=== PATIENT | male | born 1945 | race American Indian/Alaskan Native ===

== ENCOUNTER 2018-12-07 16:02 | Inpatient (IN) | payer MEDICARE ==
[2018-12-07] MEDS ORDERED: NACL 0.9% 1000 ML 1,000 ML IV ONE ×2 (16:25→19:26)
[2018-12-07] MEDS ORDERED: ATIVAN IV ONE ×4 (16:42→18:43)
[2018-12-07] MEDS ORDERED: ATIVAN ONE (16:46)
[2018-12-07 17:14] LABS: Hematocrit 45.6 % (35.5-45.6); Hemoglobin 14.5 gm/dl (11.8-15.2); Mean Corpuscular HGB Conc 32 % (32-34); Mean Corpuscular Volume 72 fl (84-94); Red Blood Count 6.37 M/mm3 (3.65-5.03)
[2018-12-07 17:16] LABS: Platelet Count 199 K/mm3 (140-440)
[2018-12-07 17:24] LABS: INR 1.02 (0.87-1.13)
[2018-12-07 17:25] LABS: Partial Thromboplastin Time 26.6 Sec. (24.2-36.6)
[2018-12-07 17:42] LABS: Alanine Aminotransferase 22 units/L (7-56); BUN/Creatinine Ratio 14; Blood Urea Nitrogen 11 mg/dL (9-20); Hemolysis Index 80
[2018-12-07 17:48] LABS: Basophils % (Manual) 0 % (0.0-1.8); Eosinophils % (Manual) 0 % (0.0-4.3); Hypochromasia 1+; Total Cells Counted 100
[2018-12-07] MEDS ORDERED: HALDOL IV PRN (17:53)
[2018-12-07] MEDS ORDERED: HALDOL IM ONE (18:02)
[2018-12-07 18:03] LABS: Bilirubin,Urine NEG (Negative); Blood,Urine SM (Negative); Color,Urine Yellow (Yellow); Hyaline Casts,Urine 1 /LPF; Mucus,Urine FEW /HPF; Urobilinogen,Urine < 2.0 mg/dL (<2.0)
[2018-12-07] MEDS ORDERED: BENADRYL IV ONE (18:03)
[2018-12-07 18:25] LABS: Cocaine Screen,Urine PRESUMPTIVE POSITIVE
--- NOTE | 2018-12-07 19:11 | Emergency Department Report ---
ED Altered Mental Status HPI - General Chief Complaint: Altered Mental Status Stated Complaint: AMS Time Seen by Provider: 12/07/18 16:25 Source: patient Mode of arrival: Ambulatory Limitations: No Limitations - History of Present Illness Initial Comments: Patient was found in his yard by a neighbor, 911 was called, neighbor didn't have any personal information, patient was brought to the ED without tenderness status, unable to talk, agitated, with tremors, appeared to be in DTs. MD Complaint: altered mental status, confusion - Related Data Home Medications Medication Instructions Recorded Confirmed Last Taken Unobtainable 12/07/18 12/07/18 Unknown Allergies Allergy/AdvReac Type Severity Reaction Status Date / Time No Known Allergies Allergy Verified 12/07/18 17:22 ED Review of Systems ROS: Stated complaint: AMS Other details as noted in HPI Comment: Unobtainable due to pts medical conditions ED Past Medical Hx - Past Medical History Previous Medical History?: No - Surgical History Past Surgical History?: No - Social History Smoking Status: Unknown if ever smoked Substance Use Type: None - Medications Home Medications: Home Medications Medication Instructions Recorded Confirmed Last Taken Type Unobtainable 12/07/18 12/07/18 Unknown History ED Physical Exam - General Limitations: Altered Mental Status General appearance: lethargic - Head Head exam: Present: atraumatic, normocephalic - ENT ENT exam: Present: normal exam - Neck Neck exam: Present: normal inspection - Respiratory Respiratory exam: Present: normal lung sounds bilaterally - Cardiovascular Cardiovascular Exam: Present: regular rate - GI/Abdominal GI/Abdominal exam: Present: soft - Neurological Exam Neurological exam: Present: altered ED Course Vital Signs 12/07/18 12/07/18 12/07/18 16:12 16:15 16:28 Temperature 97.9 F Pulse Rate 98 H 99 H Respiratory 15 16 Rate Blood Pressure 170/94 Blood Pressure [Left] O2 Sat by Pulse 95 80 L 96 Oximetry 12/07/18 12/07/18 12/07/18 16:31 16:45 17:02 Temperature Pulse Rate 91 H Respiratory 15 Rate Blood Pressure 179/108 149/123 152/97 Blood Pressure [Left] O2 Sat by Pulse 97 91 Oximetry 12/07/18 12/07/18 12/07/18 17:17 17:31 17:40 Temperature Pulse Rate 104 H 105 H Respiratory 17 16 Rate Blood Pressure 184/118 184/118 Blood Pressure [Left] O2 Sat by Pulse 95 95 Oximetry 12/07/18 12/07/18 12/07/18 17:45 18:01 18:15 Temperature Pulse Rate 107 H 106 H 104 H Respiratory 16 15 14 Rate Blood Pressure 184/118 143/116 143/116 Blood Pressure [Left] O2 Sat by Pulse Oximetry 12/07/18 12/07/18 12/07/18 18:30 18:41 18:45 Temperature Pulse Rate 108 H 75 Respiratory 16 16 Rate Blood Pressure 170/110 172/104 Blood Pressure 170/110 [Left] O2 Sat by Pulse 84 96 Oximetry 12/07/18 12/07/18 12/07/18 19:01 19:15 19:31 Temperature Pulse Rate 113 H 113 H 112 H Respiratory 15 13 21 Rate Blood Pressure 172/104 172/104 172/104 Blood Pressure [Left] O2 Sat by Pulse 82 L 97 98 Oximetry 12/07/18 12/07/18 12/07/18 19:45 20:01 20:15 Temperature Pulse Rate 114 H 125 H 128 H Respiratory 16 19 17 Rate Blood Pressure 172/104 172/104 172/104 Blood Pressure [Left] O2 Sat by Pulse 98 97 97 Oximetry 12/07/18 12/07/18 12/07/18 20:31 20:45 21:01 Temperature Pulse Rate 114 H 108 H 108 H Respiratory 16 20 22 Rate Blood Pressure 172/104 172/104 172/104 Blood Pressure [Left] O2 Sat by Pulse 98 Oximetry 12/07/18 12/07/18 12/07/18 21:15 21:31 21:45 Temperature Pulse Rate 132 H 122 H 128 H Respiratory 15 14 15 Rate Blood Pressure 172/104 172/104 172/104 Blood Pressure [Left] O2 Sat by Pulse 97 99 97 Oximetry 12/07/18 12/07/18 12/07/18 22:01 22:15 22:31 Temperature Pulse Rate 107 H 130 H 114 H Respiratory 22 16 12 Rate Blood Pressure 172/104 172/104 167/108 Blood Pressure [Left] O2 Sat by Pulse 97 99 99 Oximetry 12/07/18 12/07/18 12/07/18 22:45 22:49 23:00 Temperature Pulse Rate 114 H 115 H 113 H Respiratory 29 H 22 29 H Rate Blood Pressure 167/108 94/64 Blood Pressure 100/66 [Left] O2 Sat by Pulse 99 99 Oximetry - Lab Data Result diagrams: 12/08/18 05:03 12/08/18 05:03 Lab Results 12/07/18 12/07/18 12/07/18 Range/Units 16:17 16:49 16:49 WBC 9.9 (4.5-11.0) K/mm3 RBC 6.37 H (3.65-5.03) M/mm3 Hgb 14.5 (11.8-15.2) gm/dl Hct 45.6 (35.5-45.6) % MCV 72 L (84-94) fl MCH 23 L (28-32) pg MCHC 32 (32-34) % RDW 16.0 H (13.2-15.2) % Plt Count 199 (140-440) K/mm3 Add Manual Diff Complete Total Counted 100 Seg Neutrophils % [employer] Seg Neuts % (Manual) 91.0 H (40.0-70.0) % Band Neutrophils % 0 % Lymphocytes % (Manual) 5.0 L (13.4-35.0) % Reactive Lymphs % (Man) 0 % Monocytes % (Manual) 4.0 (0.0-7.3) % Eosinophils % (Manual) 0 (0.0-4.3) % Basophils % (Manual) 0 (0.0-1.8) % Metamyelocytes % 0 % Myelocytes % 0 % Promyelocytes % 0 % Blast Cells % 0 % Nucleated RBC % Not Reportable Seg Neutrophils # Man 9.0 H (1.8-7.7) K/mm3 Band Neutrophils # 0.0 K/mm3 Lymphocytes # (Manual) 0.5 L (1.2-5.4) K/mm3 Abs React Lymphs (Man) 0.0 K/mm3 Monocytes # (Manual) 0.4 (0.0-0.8) K/mm3 Eosinophils # (Manual) 0.0 (0.0-0.4) K/mm3 Basophils # (Manual) 0.0 (0.0-0.1) K/mm3 Metamyelocytes # 0.0 K/mm3 Myelocytes # 0.0 K/mm3 Promyelocytes # 0.0 K/mm3 Blast Cells # 0.0 K/mm3 WBC Morphology Not Reportable Hypersegmented Neuts Not Reportable Hyposegmented Neuts Not Reportable Hypogranular Neuts Not Reportable Smudge Cells Not Reportable Toxic Granulation Not Reportable Toxic Vacuolation Not Reportable Dohle Bodies Not Reportable Pelger-Huet Anomaly Not Reportable Gregory Rods Not Reportable Platelet Estimate Not Reportable Clumped Platelets Not Reportable Plt Clumps, EDTA Not Reportable Large Platelets Not Reportable Giant Platelets Not Reportable Platelet Satelliting Not Reportable Plt Morphology Comment Not Reportable RBC Morphology Not Reportable Dimorphic RBCs Not Reportable Polychromasia Not Reportable Hypochromasia 1+ Poikilocytosis Not Reportable Anisocytosis Not Reportable Microcytosis Not Reportable Macrocytosis Not Reportable Spherocytes Not Reportable Pappenheimer Bodies Not Reportable Sickle Cells Not Reportable Target Cells Not Reportable Tear Drop Cells Not Reportable Ovalocytes Not Reportable Helmet Cells Not Reportable [place] Bodies Not Reportable [place] Rings Not Reportable Sandrine Cells Not Reportable Bite Cells Not Reportable Crenated Cell Not Reportable Elliptocytes Not Reportable Acanthocytes (Spur) Not Reportable Rouleaux Not Reportable Hemoglobin C Crystals Not Reportable Schistocytes Not Reportable Malaria parasites Not Reportable Harvinder Bodies Not Reportable Hem Pathologist Commnt No PT 13.1 (12.2-14.9) Sec. INR 1.02 (0.87-1.13) APTT 26.6 (24.2-36.6) Sec. Sodium (137-145) mmol/L Potassium (3.6-5.0) mmol/L Chloride (98-107) mmol/L Carbon Dioxide (22-30) mmol/L Anion Gap mmol/L BUN (9-20) mg/dL Creatinine (0.8-1.5) mg/dL Estimated GFR ml/min BUN/Creatinine Ratio % Glucose (75-100) mg/dL POC Glucose 298 H (70-105) Lactic Acid (0.7-2.0) mmol/L Calcium (8.4-10.2) mg/dL Total Bilirubin (0.1-1.2) mg/dL AST (5-40) units/L ALT (7-56) units/L Alkaline Phosphatase (35-129) units/L Ammonia (25-60) umol/L Troponin T (0.00-0.029) ng/mL Total Protein (6.3-8.2) g/dL Albumin (3.9-5) g/dL Albumin/Globulin Ratio % Amylase (27-131) units/L Urine Color (Yellow) Urine Turbidity (Clear) Urine pH (5.0-7.0) Ur Specific Melvin (1.003-1.030) Urine Protein (Negative) mg/dL Urine Glucose (UA) (Negative) mg/dL Urine Ketones (Negative) mg/dL Urine Blood (Negative) Urine Nitrite (Negative) Urine Bilirubin (Negative) Urine Urobilinogen (<2.0) mg/dL Ur Leukocyte Esterase (Negative) Urine WBC (Auto) (0.0-6.0) /HPF Urine RBC (Auto) (0.0-6.0) /HPF Hyaline Casts /LPF Urine Mucus /HPF Urine Opiates Screen Urine Methadone Screen Ur Barbiturates Screen Ur Phencyclidine Scrn Ur Amphetamines Screen U Benzodiazepines Scrn Urine Cocaine Screen U Marijuana (THC) Screen Drugs of Abuse Note Plasma/Serum Alcohol (0-0.07) % 12/07/18 12/07/18 12/07/18 Range/Units 16:49 16:49 16:49 WBC (4.5-11.0) K/mm3 RBC (3.65-5.03) M/mm3 Hgb (11.8-15.2) gm/dl Hct (35.5-45.6) % MCV (84-94) fl MCH (28-32) pg MCHC (32-34) % RDW (13.2-15.2) % Plt Count (140-440) K/mm3 Add Manual Diff Total Counted Seg Neutrophils % Seg Neuts % (Manual) (40.0-70.0) % Band Neutrophils % % Lymphocytes % (Manual) (13.4-35.0) % Reactive Lymphs % (Man) % Monocytes % (Manual) (0.0-7.3) % Eosinophils % (Manual) (0.0-4.3) % Basophils % (Manual) (0.0-1.8) % Metamyelocytes % % Myelocytes % % Promyelocytes % % Blast Cells % % Nucleated RBC % Seg Neutrophils # Man (1.8-7.7) K/mm3 Band Neutrophils # K/mm3 Lymphocytes # (Manual) (1.2-5.4) K/mm3 Abs React Lymphs (Man) K/mm3 Monocytes # (Manual) (0.0-0.8) K/mm3 Eosinophils # (Manual) (0.0-0.4) K/mm3 Basophils # (Manual) (0.0-0.1) K/mm3 Metamyelocytes # K/mm3 Myelocytes # K/mm3 Promyelocytes # K/mm3 Blast Cells # K/mm3 WBC Morphology Hypersegmented Neuts Hyposegmented Neuts Hypogranular Neuts Smudge Cells Toxic Granulation Toxic Vacuolation Dohle Bodies Pelger-Huet Anomaly Gregory Rods Platelet Estimate Clumped Platelets Plt Clumps, EDTA Large Platelets Giant Platelets Platelet Satelliting Plt Morphology Comment RBC Morphology Dimorphic RBCs Polychromasia Hypochromasia Poikilocytosis Anisocytosis Microcytosis Macrocytosis Spherocytes Pappenheimer Bodies Sickle Cells Target Cells Tear Drop Cells Ovalocytes Helmet Cells [place] Bodies [place] Rings Sandrine Cells Bite Cells Crenated Cell Elliptocytes Acanthocytes (Spur) Rouleaux Hemoglobin C Crystals Schistocytes Malaria parasites Harvinder Bodies Hem Pathologist Commnt PT (12.2-14.9) Sec. INR (0.87-1.13) APTT (24.2-36.6) Sec. Sodium 129 L (137-145) mmol/L Potassium 4.6 (3.6-5.0) mmol/L Chloride 89.6 L (98-107) mmol/L Carbon Dioxide 22 (22-30) mmol/L Anion Gap 22 mmol/L BUN 11 (9-20) mg/dL Creatinine 0.8 (0.8-1.5) mg/dL Estimated GFR > 60 ml/min BUN/Creatinine Ratio 14 % Glucose 325 H (75-100) mg/dL POC Glucose (70-105) Lactic Acid 3.10 H* (0.7-2.0) mmol/L Calcium 10.0 (8.4-10.2) mg/dL Total Bilirubin 1.00 (0.1-1.2) mg/dL AST 25 (5-40) units/L ALT 22 (7-56) units/L Alkaline Phosphatase 67 (35-129) units/L Ammonia (25-60) umol/L Troponin T < 0.010 (0.00-0.029) ng/mL Total Protein 7.4 (6.3-8.2) g/dL Albumin 4.0 (3.9-5) g/dL Albumin/Globulin Ratio 1.2 % Amylase (27-131) units/L Urine Color (Yellow) Urine Turbidity (Clear) Urine pH (5.0-7.0) Ur Specific [place]vin (1.003-1.030) Urine Protein (Negative) mg/dL Urine Glucose (UA) (Negative) mg/dL Urine Ketones (Negative) mg/dL Urine Blood (Negative) Urine Nitrite (Negative) Urine Bilirubin (Negative) Urine Urobilinogen (<2.0) mg/dL Ur Leukocyte Esterase (Negative) Urine WBC (Auto) (0.0-6.0) /HPF Urine RBC (Auto) (0.0-6.0) /HPF Hyaline Casts /LPF Urine Mucus /HPF Urine Opiates Screen Urine Methadone Screen Ur Barbiturates Screen Ur Phencyclidine Scrn Ur Amphetamines Screen U Benzodiazepines Scrn Urine Cocaine Screen U Marijuana (THC) Screen Drugs of Abuse Note Plasma/Serum Alcohol < 0.01 (0-0.07) % 12/07/18 12/07/18 12/07/18 Range/Units 17:36 17:36 18:01 WBC (4.5-11.0) K/mm3 RBC (3.65-5.03) M/mm3 Hgb (11.8-15.2) gm/dl Hct (35.5-45.6) % MCV (84-94) fl MCH (28-32) pg MCHC (32-34) % RDW (13.2-15.2) % Plt Count (140-440) K/mm3 Add Manual Diff Total Counted Seg Neutrophils % Seg Neuts % (Manual) (40.0-70.0) % Band Neutrophils % % Lymphocytes % (Manual) (13.4-35.0) % Reactive Lymphs % (Man) % Monocytes % (Manual) (0.0-7.3) % Eosinophils % (Manual) (0.0-4.3) % Basophils % (Manual) (0.0-1.8) % Metamyelocytes % % Myelocytes % % Promyelocytes % % Blast Cells % % Nucleated RBC % Seg Neutrophils # Man (1.8-7.7) K/mm3 Band Neutrophils # K/mm3 Lymphocytes # (Manual) (1.2-5.4) K/mm3 Abs React Lymphs (Man) K/mm3 Monocytes # (Manual) (0.0-0.8) K/mm3 Eosinophils # (Manual) (0.0-0.4) K/mm3 Basophils # (Manual) (0.0-0.1) K/mm3 Metamyelocytes # K/mm3 Myelocytes # K/mm3 Promyelocytes # K/mm3 Blast Cells # K/mm3 WBC Morphology Hypersegmented Neuts Hyposegmented Neuts Hypogranular Neuts Smudge Cells Toxic Granulation Toxic Vacuolation Dohle Bodies Pelger-Huet Anomaly Gregory Rods Platelet Estimate Clumped Platelets Plt Clumps, EDTA Large Platelets Giant Platelets Platelet Satelliting Plt Morphology Comment RBC Morphology Dimorphic RBCs Polychromasia Hypochromasia Poikilocytosis Anisocytosis Microcytosis Macrocytosis Spherocytes Pappenheimer Bodies Sickle Cells Target Cells Tear Drop Cells Ovalocytes Helmet Cells [place] Bodies [place] Rings [place] Cells Bite Cells Crenated Cell Elliptocytes Acanthocytes (Spur) Rouleaux Hemoglobin C Crystals Schistocytes Malaria parasites Harvinder Bodies Hem Pathologist Commnt PT (12.2-14.9) Sec. INR (0.87-1.13) APTT (24.2-36.6) Sec. Sodium (137-145) mmol/L Potassium (3.6-5.0) mmol/L Chloride (98-107) mmol/L Carbon Dioxide (22-30) mmol/L Anion Gap mmol/L BUN (9-20) mg/dL Creatinine (0.8-1.5) mg/dL Estimated GFR ml/min BUN/Creatinine Ratio % Glucose (75-100) mg/dL POC Glucose (70-105) Lactic Acid 4.20 H* (0.7-2.0) mmol/L Calcium (8.4-10.2) mg/dL Total Bilirubin (0.1-1.2) mg/dL AST (5-40) units/L ALT (7-56) units/L Alkaline Phosphatase (35-129) units/L Ammonia (25-60) umol/L Troponin T (0.00-0.029) ng/mL Total Protein (6.3-8.2) g/dL Albumin (3.9-5) g/dL Albumin/Globulin Ratio % Amylase (27-131) units/L Urine Color Yellow (Yellow) Urine Turbidity Clear (Clear) Urine pH 7.0 (5.0-7.0) Ur Specific Melvin 1.018 (1.003-1.030) Urine Protein 30 mg/dl (Negative) mg/dL Urine Glucose (UA) >=500 (Negative) mg/dL Urine Ketones 20 (Negative) mg/dL Urine Blood Sm (Negative) Urine Nitrite Neg (Negative) Urine Bilirubin Neg (Negative) Urine Urobilinogen < 2.0 (<2.0) mg/dL Ur Leukocyte Esterase Neg (Negative) Urine WBC (Auto) 2.0 (0.0-6.0) /HPF Urine RBC (Auto) 4.0 (0.0-6.0) /HPF Hyaline Casts 1 /LPF Urine Mucus Few /HPF Urine Opiates Screen Presumptive negative Urine Methadone Screen Presumptive negative Ur Barbiturates Screen Presumptive negative Ur Phencyclidine Scrn Presumptive negative Ur Amphetamines Screen Presumptive negative U Benzodiazepines Scrn Presumptive negative Urine Cocaine Screen Presumptive positive U Marijuana (THC) Screen Presumptive negative Drugs of Abuse Note Disclamer Plasma/Serum Alcohol (0-0.07) % 12/07/18 12/07/18 Range/Units 18:01 18:01 WBC (4.5-11.0) K/mm3 RBC (3.65-5.03) M/mm3 Hgb (11.8-15.2) gm/dl Hct (35.5-45.6) % MCV (84-94) fl MCH (28-32) pg MCHC (32-34) % RDW (13.2-15.2) % Plt Count (140-440) K/mm3 Add Manual Diff Total Counted Seg Neutrophils % Seg Neuts % (Manual) (40.0-70.0) % Band Neutrophils % % Lymphocytes % (Manual) (13.4-35.0) % Reactive Lymphs % (Man) % Monocytes % (Manual) (0.0-7.3) % Eosinophils % (Manual) (0.0-4.3) % Basophils % (Manual) (0.0-1.8) % Metamyelocytes % % Myelocytes % % Promyelocytes % % Blast Cells % % Nucleated RBC % Seg Neutrophils # Man (1.8-7.7) K/mm3 Band Neutrophils # K/mm3 Lymphocytes # (Manual) (1.2-5.4) K/mm3 Abs React Lymphs (Man) K/mm3 Monocytes # (Manual) (0.0-0.8) K/mm3 Eosinophils # (Manual) (0.0-0.4) K/mm3 Basophils # (Manual) (0.0-0.1) K/mm3 Metamyelocytes # K/mm3 Myelocytes # K/mm3 Promyelocytes # K/mm3 Blast Cells # K/mm3 WBC Morphology Hypersegmented Neuts Hyposegmented Neuts Hypogranular Neuts Smudge Cells Toxic Granulation Toxic Vacuolation Dohle Bodies Pelger-Huet Anomaly Gregory Rods Platelet Estimate Clumped Platelets Plt Clumps, EDTA Large Platelets Giant Platelets Platelet Satelliting Plt Morphology Comment RBC Morphology Dimorphic RBCs Polychromasia Hypochromasia Poikilocytosis Anisocytosis Microcytosis Macrocytosis Spherocytes Pappenheimer Bodies Sickle Cells Target Cells Tear Drop Cells Ovalocytes Helmet Cells [place] Bodies [place] Rings Sandrine Cells Bite Cells Crenated Cell Elliptocytes Acanthocytes (Spur) Rouleaux Hemoglobin C Crystals Schistocytes Malaria parasites Harvinder Bodies Hem Pathologist Commnt PT (12.2-14.9) Sec. INR (0.87-1.13) APTT (24.2-36.6) Sec. Sodium (137-145) mmol/L Potassium (3.6-5.0) mmol/L Chloride (98-107) mmol/L Carbon Dioxide (22-30) mmol/L Anion Gap mmol/L BUN (9-20) mg/dL Creatinine (0.8-1.5) mg/dL Estimated GFR ml/min BUN/Creatinine Ratio % Glucose (75-100) mg/dL POC Glucose (70-105) Lactic Acid (0.7-2.0) mmol/L Calcium (8.4-10.2) mg/dL Total Bilirubin (0.1-1.2) mg/dL AST (5-40) units/L ALT (7-56) units/L Alkaline Phosphatase (35-129) units/L Ammonia 84.0 H (25-60) umol/L Troponin T (0.00-0.029) ng/mL Total Protein (6.3-8.2) g/dL Albumin (3.9-5) g/dL Albumin/Globulin Ratio % Amylase 52 (27-131) units/L Urine Color (Yellow) Urine Turbidity (Clear) Urine pH (5.0-7.0) Ur Specific Melvin (1.003-1.030) Urine Protein (Negative) mg/dL Urine Glucose (UA) (Negative) mg/dL Urine Ketones (Negative) mg/dL Urine Blood (Negative) Urine Nitrite (Negative) Urine Bilirubin (Negative) Urine Urobilinogen (<2.0) mg/dL Ur Leukocyte Esterase (Negative) Urine WBC (Auto) (0.0-6.0) /HPF Urine RBC (Auto) (0.0-6.0) /HPF Hyaline Casts /LPF Urine Mucus /HPF Urine Opiates Screen Urine Methadone Screen Ur Barbiturates Screen Ur Phencyclidine Scrn Ur Amphetamines Screen U Benzodiazepines Scrn Urine Cocaine Screen U Marijuana (THC) Screen Drugs of Abuse Note Plasma/Serum Alcohol (0-0.07) % - Medical Decision Making Patient agitated in the ER received several aliquots of Ativan 1 mg IV for total 5 mg, Haldol 5 mg IM, Benadryl 50 mg IV, within the span of 3 hours. Patient still protecting airway, with admitted to the hospitalist service. Working diagnosis DTs. Critical care attestation.: If time is entered above; I have spent that time in minutes in the direct care of this critically ill patient, excluding procedure time. ED Disposition Clinical Impression: DTs (delirium tremens) Altered mental status Qualifiers: Altered mental status type: delirium Qualified Code(s): R41.0 - Disorientation, unspecified Disposition: OP ADMIT IP TO THIS HOSP Is pt being admited?: Yes Does the pt Need Aspirin: No Condition: Stable
[2018-12-07 19:22] LABS: Amphetamine Screen,Urine PRESUMPTIVE NEGATIVE; Benzodiazepines Screen,Urine PRESUMPTIVE NEGATIVE; Cannabinoid Screen,Urine PRESUMPTIVE NEGATIVE; Methadone Screen,Urine PRESUMPTIVE NEGATIVE; Opiate Screen,Urine PRESUMPTIVE NEGATIVE
--- NOTE | 2018-12-07 19:23 | History and Physical Report ---
History of Present Illness Chief complaint: Unresponsive History of present illness: Male gentleman found down and unresponsive in his yard by a neighbor. Pt is stuporous and unable to provide history. EMS notified and upon arrival the patient was found to be unresponsive and transported to [facility]. Pt seen and evaluated in ED and found to have Encephalopathy, Hyponatremia,Acidosis. Pt found to cocaine on UDS. Pt suspected to be intoxicated and undergoing ETOH withdwawl in ED. Pt admitted to [facility] and initiated on CIWA protocol. Pt is stuporous on exam, but has positive gag reflex and in able to protect his airway. No further history obtainable. No prior admission for review. No medication listed for reconciliation at time of exam. Pt does not have any form of identification. Past History Past Medical History: No medical history, other (Reviewed, UTO) Past Surgical History: No surgical history (reviewed, UTO) Social history: no significant social history (Reviewed, UTO) Family history: no significant family history (reviewed, UTO) Medications and Allergies Allergies Allergy/AdvReac Type Severity Reaction Status Date / Time No Known Allergies Allergy Verified 12/07/18 17:22 Home Medications Medication Instructions Recorded Confirmed Last Taken Type Unobtainable 12/07/18 12/07/18 Unknown History Review of Systems ROS unobtainable: due to mental status Exam - Constitutional Vitals: Temp Pulse Resp BP Pulse Ox 97.9 F 113 H 13 172/104 97 12/07/18 16:28 12/07/18 19:15 12/07/18 19:15 12/07/18 19:15 12/07/18 19:15 General appearance: Present: mild distress - EENT Eyes: Present: miosis - Neck Neck: Present: supple, normal ROM - Respiratory Respiratory effort: normal Respiratory: bilateral: CTA - Extremities Extremities: pulses symmetrical, No edema Peripheral Pulses: within normal limits - Abdominal General gastrointestinal: Present: soft, non-tender, non-distended, normal bowel sounds Male genitourinary: Present: normal - Integumentary Integumentary: Present: dry, clammy, decreased turgor - Musculoskeletal Musculoskeletal: generalized weakness - Psychiatric Psychiatric: no appropriate mood/affect, no intact judgment & insight, no memory intact - Neurologic Neurologic: moves all extremities, no gait normal Results - Labs CBC & Chem 7: 12/07/18 16:49 12/07/18 16:49 Labs: Abnormal lab results 12/07/18 12/07/18 12/07/18 Range/Units 16:17 16:49 16:49 RBC 6.37 H (3.65-5.03) M/mm3 MCV 72 L (84-94) fl MCH 23 L (28-32) pg RDW 16.0 H (13.2-15.2) % Seg Neuts % (Manual) 91.0 H (40.0-70.0) % Lymphocytes % (Manual) 5.0 L (13.4-35.0) % Seg Neutrophils # Man 9.0 H (1.8-7.7) K/mm3 Lymphocytes # (Manual) 0.5 L (1.2-5.4) K/mm3 Sodium 129 L (137-145) mmol/L Chloride 89.6 L (98-107) mmol/L Glucose 325 H (75-100) mg/dL POC Glucose 298 H (70-105) Lactic Acid (0.7-2.0) mmol/L Ammonia (25-60) umol/L 12/07/18 12/07/18 12/07/18 Range/Units 16:49 18:01 18:01 RBC (3.65-5.03) M/mm3 MCV (84-94) fl MCH (28-32) pg RDW (13.2-15.2) % Seg Neuts % (Manual) (40.0-70.0) % Lymphocytes % (Manual) (13.4-35.0) % Seg Neutrophils # Man (1.8-7.7) K/mm3 Lymphocytes # (Manual) (1.2-5.4) K/mm3 Sodium (137-145) mmol/L Chloride (98-107) mmol/L Glucose (75-100) mg/dL POC Glucose (70-105) Lactic Acid 3.10 H* 4.20 H* (0.7-2.0) mmol/L Ammonia 84.0 H (25-60) umol/L Assessment and Plan - Patient Problems (1) Encephalopathy Current Visit: Yes Status: Acute Plan to address problem: CT Head, Neuro check, UDS, aspiration precautions, seizure precautions, IVF resuscitation therapy. thyroid panel, EEG, neuro checks. (2) Acidosis Current Visit: Yes Status: Acute Plan to address problem: IVF resuscitation therapy, repeat bmp in am. (3) Diabetes Current Visit: Yes Status: Acute Plan to address problem: ADA diet, insulin, accu check, hypoglycemia protocol (4) Hyponatremia syndrome Current Visit: Yes Status: Acute Plan to address problem: IVF resuscitation therapy, repeat bmp (5) Polysubstance (excluding opioids) dependence Current Visit: Yes Status: Acute Plan to address problem: banana bag, CIWA protocol, Blood alcohol level, UDS, supportive care (6) DTs (delirium tremens) Current Visit: Yes Status: Acute Plan to address problem: Banana bag, IVF resuscitation therapy, neuro checks, aspiration precautions, fall precautions. (7) DVT prophylaxis Current Visit: Yes Status: Acute
[2018-12-07] MEDS ORDERED: SODIUM CHLORIDE FLUSH SYRINGE 10 ML IV PRN (20:06)
[2018-12-07] MEDS ORDERED: PROVENTIL IH PRN (20:06)
--- NOTE | 2018-12-07 20:06 | Cat Scan Report ---
Nonenhanced CT scan of the brain: INDICATION: Altered Mental Status. TECHNIQUE: Routine CT head without contrast. Sagittal and coronal reformatted images were obtained. A ll CT scans at this location are performed using CT dose reduction for ALARA by means of automated ex posure control. COMPARISON: None. FINDINGS: BRAIN / INTRACRANIAL CONTENTS: No acute hemorrhage, mass effect, midline shift, hydrocephalus, or acu te, large territorial infarct. Chronic lacunae seen in both basal ganglia. Age-appropriate cortical i nvolution is seen. Volume loss is also seen in the cerebellar hemispheres and especially in the cereb ellar vermis. Periventricular low density areas are seen in both cerebral hemispheres due to microvas cular angiopathy. CRANIOCERVICAL JUNCTION: No significant abnormality. ORBITS: No significant abnormality of visualized orbits. SINUSES / MASTOIDS: No significant abnormality of the visualized paranasal sinuses or mastoid air aidan ls. ADDITIONAL FINDINGS: None. IMPRESSION: I do not see intracerebral hemorrhage, acute territorial infarction or acute parenchymal lesion. Signer Name: Alexis Katz MD Signed: 12/07/2018 8:01 PM Workstation Name: [id number]
[2018-12-07] MEDS ORDERED: VITAMIN B-1 100 MG, FOLVITE 1 MG, INFUVITE 10 ML in NACL 0.9% 1000 ML 1,000 ML IV ONE (20:10)
[2018-12-07] MEDS ORDERED: D50W (25GM) Syringe IV PRN (20:21)
[2018-12-07 21:14] LABS: Free T4 (Free Thyroxine) 1.36 ng/dL (0.76-1.46)
[2018-12-07] MEDS: HumaLOG SUB-Q SCH (22:07)
[2018-12-07] MEDS: SODIUM CHLORIDE FLUSH SYRINGE 10 ML IV SCH (22:07)
[2018-12-07] MEDS: APRESOLINE IV PRN (22:39)
[2018-12-08 06:06] LABS: Basophils % (Auto) 0.3 % (0.0-1.8); Eosinophils % (Auto) 0.1 % (0.0-4.3); Hematocrit 44.4 % (35.5-45.6); Hemoglobin 13.9 gm/dl (11.8-15.2); Lymphocytes # (Auto) 0.5 K/mm3 (1.2-5.4); Lymphocytes % (Auto) 7.9 % (13.4-35.0); Mean Corpuscular HGB Conc 31 % (32-34); Mean Corpuscular Volume 71 fl (84-94); Monocytes # (Auto) 0.6 K/mm3 (0.0-0.8); Monocytes % (Auto) 8.5 % (0.0-7.3); Platelet Count 191 K/mm3 (140-440); Red Blood Count 6.26 M/mm3 (3.65-5.03); Red Cell Distribution Width 16.1 % (13.2-15.2)
[2018-12-08 06:31] LABS: Alanine Aminotransferase 16 units/L (7-56); Albumin 3.5 g/dL (3.9-5); BUN/Creatinine Ratio 13; Blood Urea Nitrogen 10 mg/dL (9-20); Calcium 9.4 mg/dL (8.4-10.2); Hemolysis Index 17
[2018-12-08] MEDS: HumaLOG SUB-Q SCH ×4 (08:45→22:20)
[2018-12-08] MEDS: SODIUM CHLORIDE FLUSH SYRINGE 10 ML IV SCH ×2 (11:02→22:21)
[2018-12-08] MEDS ORDERED: CEPHULAC PO PRN (12:26)
--- NOTE | 2018-12-08 12:26 | Progress Note ---
Assessment and Plan Assessment and plan: Hepatic encephalopathy. CT scan of the head negative. Ammonia level elevated at 84. Continue to monitor. Urine drug screen positive for cocaine. Continue supportive care and treat underlying causes. Etiology also likely secondary to cocaine abuse. Diabetes mellitus type 2. Continue Accu-Cheks and sliding scale insulin. ADA diet. Hyponatremia. Resolved. EtOH abuse. ? Delirium tremens. HEENT CIWA protocol. Lactic acidosis. Etiology likely secondary to dehydration. Normally presently. History Interval history: 73-year-old male found down and unresponsive in his yard by a neighbor. Pt is stuporous and unable to provide history. EMS notified and upon arrival the patient was found to be unresponsive and transported to [facility]. Pt seen and evalu ated in ED and found to have Encephalopathy, Hyponatremia,Acidosis. Pt found to cocaine on UDS. Pt suspected to be intoxicated and undergoing ETOH withdwawl in ED. Pt admitted to IMCU and initiated on CIWA protocol. Patient currently requiring restraints and responsive to painful stimuli. Somnolent and lethargic on my exam. Hospitalist Physical - Constitutional Vitals: Temp Pulse Resp BP Pulse Ox 98.0 F 108 H 13 170/107 100 12/08/18 08:00 12/08/18 06:14 12/08/18 06:11 12/08/18 06:11 12/08/18 08:47 General appearance: Present: mild distress - EENT Eyes: Present: PERRL, EOM intact ENT: hearing intact, clear oral mucosa, dentition normal - Neck Neck: Present: supple, normal ROM - Respiratory Respiratory effort: normal Respiratory: bilateral: CTA - Cardiovascular Rhythm: regular Heart Sounds: Present: S1 & S2. Absent: gallop, rub - Extremities Extremities: no ischemia, No edema, Full ROM - Abdominal General gastrointestinal: soft, non-tender, non-distended, normal bowel sounds - Integumentary Integumentary: Present: clear, warm, dry - Neurologic Neurologic: CNII-XII intact, moves all extremities Results - Labs CBC & Chem 7: 12/08/18 05:03 12/08/18 05:03 Labs: Laboratory Last Values WBC 6.8 K/mm3 (4.5-11.0) 12/08/18 05:03 RBC 6.26 M/mm3 (3.65-5.03) H 12/08/18 05:03 Hgb 13.9 gm/dl (11.8-15.2) 12/08/18 05:03 Hct 44.4 % (35.5-45.6) 12/08/18 05:03 MCV 71 fl (84-94) L 12/08/18 05:03 MCH 22 pg (28-32) L 12/08/18 05:03 MCHC 31 % (32-34) L 12/08/18 05:03 RDW 16.1 % (13.2-15.2) H 12/08/18 05:03 Plt Count 191 K/mm3 (140-440) 12/08/18 05:03 Lymph % (Auto) 7.9 % (13.4-35.0) L 12/08/18 05:03 [place] % (Auto) 8.5 % (0.0-7.3) H 12/08/18 05:03 Eos % (Auto) 0.1 % (0.0-4.3) 12/08/18 05:03 Baso % (Auto) 0.3 % (0.0-1.8) 12/08/18 05:03 Lymph # 0.5 K/mm3 (1.2-5.4) L 12/08/18 05:03 [place] # 0.6 K/mm3 (0.0-0.8) 12/08/18 05:03 Eos # 0.0 K/mm3 (0.0-0.4) 12/08/18 05:03 Baso # 0.0 K/mm3 (0.0-0.1) 12/08/18 05:03 Add Manual Diff Complete 12/07/18 16:49 Total Counted 100 12/07/18 16:49 Seg Neutrophils % 83.2 % (40.0-70.0) H 12/08/18 05:03 Seg Neuts % (Manual) 91.0 % (40.0-70.0) H 12/07/18 16:49 0 % 12/07/18 16:49 5.0 % (13.4-35.0) L 12/07/18 16:49 Reactive Lymphs % (Man) 0 % 12/07/18 16:49 4.0 % (0.0-7.3) 12/07/18 16:49 0 % (0.0-4.3) 12/07/18 16:49 0 % (0.0-1.8) 12/07/18 16:49 0 % 12/07/18 16:49 0 % 12/07/18 16:49 0 % 12/07/18 16:49 0 % 12/07/18 16:49 Nucleated RBC % Not Reportable 12/07/18 16:49 Seg Neutrophils # 5.6 K/mm3 (1.8-7.7) 12/08/18 05:03 Seg Neutrophils # Man 9.0 K/mm3 (1.8-7.7) H 12/07/18 16:49 Band Neutrophils # 0.0 K/mm3 12/07/18 16:49 0.5 K/mm3 (1.2-5.4) L 12/07/18 16:49 Abs React Lymphs (Man) 0.0 K/mm3 12/07/18 16:49 0.4 K/mm3 (0.0-0.8) 12/07/18 16:49 0.0 K/mm3 (0.0-0.4) 12/07/18 16:49 0.0 K/mm3 (0.0-0.1) 12/07/18 16:49 0.0 K/mm3 12/07/18 16:49 0.0 K/mm3 12/07/18 16:49 0.0 K/mm3 12/07/18 16:49 Blast Cells # 0.0 K/mm3 12/07/18 16:49 WBC Morphology Not Reportable 12/07/18 16:49 Hypersegmented Neuts Not Reportable 12/07/18 16:49 Hyposegmented Neuts Not Reportable 12/07/18 16:49 Hypogranular Neuts Not Reportable 12/07/18 16:49 Not Reportable 12/07/18 16:49 Not Reportable 12/07/18 16:49 Not Reportable 12/07/18 16:49 Not Reportable 12/07/18 16:49 Not Reportable 12/07/18 16:49 Not Reportable 12/07/18 16:49 Not Reportable 12/07/18 16:49 Not Reportable 12/07/18 16:49 Plt Clumps, EDTA Not Reportable 12/07/18 16:49 Not Reportable 12/07/18 16:49 Not Reportable 12/07/18 16:49 Not Reportable 12/07/18 16:49 Plt Morphology Comment Not Reportable 12/07/18 16:49 RBC Morphology Not Reportable 12/07/18 16:49 Dimorphic RBCs Not Reportable 12/07/18 16:49 Not Reportable 12/07/18 16:49 1+ 12/07/18 16:49 Not Reportable 12/07/18 16:49 Not Reportable 12/07/18 16:49 Not Reportable 12/07/18 16:49 Not Reportable 12/07/18 16:49 Not Reportable 12/07/18 16:49 Not Reportable 12/07/18 16:49 Not Reportable 12/07/18 16:49 Not Reportable 12/07/18 16:49 Not Reportable 12/07/18 16:49 Not Reportable 12/07/18 16:49 Not Reportable 12/07/18 16:49 Not Reportable 12/07/18 16:49 Not Reportable 12/07/18 16:49 Not Reportable 12/07/18 16:49 Not Reportable 12/07/18 16:49 Not Reportable 12/07/18 16:49 Not Reportable 12/07/18 16:49 Acanthocytes (Spur) Not Reportable 12/07/18 16:49 Rouleaux Not Reportable 12/07/18 16:49 Not Reportable 12/07/18 16:49 Not Reportable 12/07/18 16:49 Not Reportable 12/07/18 16:49 Not Reportable 12/07/18 16:49 Hem Pathologist Commnt No 12/07/18 16:49 PT 13.1 Sec. (12.2-14.9) 12/07/18 16:49 INR 1.02 (0.87-1.13) 12/07/18 16:49 APTT 26.6 Sec. (24.2-36.6) 12/07/18 16:49 > 81098 ng/mlDDU (0-234) H 12/07/18 Unknown Sodium 139 mmol/L (137-145) D 12/08/18 05:03 Potassium 4.0 mmol/L (3.6-5.0) 12/08/18 05:03 Chloride 102.5 mmol/L (98-107) 12/08/18 05:03 Carbon Dioxide 22 mmol/L (22-30) 12/08/18 05:03 19 mmol/L 12/08/18 05:03 BUN 10 mg/dL (9-20) 12/08/18 05:03 0.8 mg/dL (0.8-1.5) 12/08/18 05:03 Estimated GFR > 60 ml/min 12/08/18 05:03 13 % 12/08/18 05:03 Glucose 200 mg/dL (75-100) H 12/08/18 05:03 POC Glucose 257 (70-105) H 12/08/18 08:30 Lactic Acid 1.10 mmol/L (0.7-2.0) 12/08/18 09:15 Calcium 9.4 mg/dL (8.4-10.2) 12/08/18 05:03 0.80 mg/dL (0.1-1.2) 12/08/18 05:03 AST 28 units/L (5-40) 12/08/18 05:03 ALT 16 units/L (7-56) 12/08/18 05:03 56 units/L (35-129) 12/08/18 05:03 84.0 umol/L (25-60) H 12/07/18 18:01 < 0.010 ng/mL (0.00-0.029) 12/07/18 16:49 NT-Pro-B Natriuret Pep 357.9 pg/mL (0-900) 12/07/18 Unknown 6.5 g/dL (6.3-8.2) 12/08/18 05:03 3.5 g/dL (3.9-5) L 12/08/18 05:03 1.2 % 12/08/18 05:03 Amylase 52 units/L (27-131) 12/07/18 18:01 TSH 0.650 mlU/mL (0.270-4.200) 12/07/18 20:24 Free T4 1.36 ng/dL (0.76-1.46) 12/07/18 20:24 Yellow (Yellow) 12/07/18 17:36 Clear (Clear) 12/07/18 17:36 7.0 (5.0-7.0) 12/07/18 17:36 Ur Specific [place] 1.018 (1.003-1.030) 12/07/18 17:36 30 mg/dl mg/dL (Negative) 12/07/18 17:36 >=500 mg/dL (Negative) 12/07/18 17:36 20 mg/dL (Negative) 12/07/18 17:36 Sm (Negative) 12/07/18 17:36 Neg (Negative) 12/07/18 17:36 Neg (Negative) 12/07/18 17:36 < 2.0 mg/dL (<2.0) 12/07/18 17:36 Ur Leukocyte Esterase Neg (Negative) 12/07/18 17:36 2.0 /HPF (0.0-6.0) 12/07/18 17:36 4.0 /HPF (0.0-6.0) 12/07/18 17:36 Hyaline Casts 1 /LPF 12/07/18 17:36 Few /HPF 12/07/18 17:36 Presumptive negative 12/07/18 17:36 Presumptive negative 12/07/18 17:36 Ur Barbiturates Screen Presumptive negative 12/07/18 17:36 Ur Phencyclidine Scrn Presumptive negative 12/07/18 17:36 Ur Amphetamines Screen Presumptive negative 12/07/18 17:36 U Benzodiazepines Scrn Presumptive negative 12/07/18 17:36 Presumptive positive 12/07/18 17:36 U Marijuana (THC) Screen Presumptive negative 12/07/18 17:36 Disclamer 12/07/18 17:36 Plasma/Serum Alcohol < 0.01 % (0-0.07) 12/07/18 16:49 Active Medications - Current Medications Current Medications: Generic Name Dose Route Start Last Admin Trade Name Freq PRN Reason Stop Dose Admin Albuterol 2.5 mg 12/07/18 20:06 Proventil IH Q3HRT PRN Shortness Of Breath Dextrose 50 ml 12/07/18 20:21 D50w (25gm) Syringe IV PRN PRN Hypoglycemia Hydralazine HCl 10 mg 12/07/18 20:11 12/07/18 22:39 Apresoline IV 10 mg Q6HR PRN Administration Hypertension Sodium Chloride 1,000 mls @ 100 mls/hr 12/07/18 21:00 Nacl 0.9% 1000 Ml IV DIRECT RACHELL Insulin Human Lispro 0 unit 12/07/18 22:00 12/08/18 08:45 Humalog SUB-Q 4 unit ACHS RACHELL Administration Protocol Sodium Chloride 10 ml 12/07/18 22:00 12/08/18 11:02 Sodium Chloride Flush Syringe 10 Ml IV 10 ml BID RACHELL Administration Sodium Chloride 10 ml 12/07/18 20:06 Sodium Chloride Flush Syringe 10 Ml IV PRN PRN LINE FLUSH
[2018-12-09 04:33] LABS: Basophils % (Auto) 0.4 % (0.0-1.8); Eosinophils # (Auto) 0.1 K/mm3 (0.0-0.4); Eosinophils % (Auto) 0.8 % (0.0-4.3); Hematocrit 46.1 % (35.5-45.6); Hemoglobin 14.6 gm/dl (11.8-15.2); Lymphocytes # (Auto) 0.8 K/mm3 (1.2-5.4); Lymphocytes % (Auto) 11.6 % (13.4-35.0); Mean Corpuscular HGB Conc 32 % (32-34); Mean Corpuscular Volume 71 fl (84-94); Monocytes # (Auto) 0.8 K/mm3 (0.0-0.8); Monocytes % (Auto) 11.3 % (0.0-7.3); Platelet Count 187 K/mm3 (140-440); Red Blood Count 6.46 M/mm3 (3.65-5.03); Red Cell Distribution Width 16.6 % (13.2-15.2)
[2018-12-09 05:15] LABS: BUN/Creatinine Ratio 19; Blood Urea Nitrogen 17 mg/dL (9-20); Calcium 9.5 mg/dL (8.4-10.2); Hemolysis Index 11
[2018-12-09] MEDS: APRESOLINE IV PRN (06:21)
[2018-12-09] MEDS: HumaLOG SUB-Q SCH ×4 (10:21→22:24)
[2018-12-09] MEDS: SODIUM CHLORIDE FLUSH SYRINGE 10 ML IV SCH ×2 (10:22→22:23)
[2018-12-09] MEDS: NACL 0.9% 1000 ML 1,000 ML IV SCH ×2 (11:20→22:24)
--- NOTE | 2018-12-09 12:41 | Progress Note ---
Assessment and Plan Assessment and plan: Hepatic encephalopathy. CT scan of the head negative. Ammonia level elevated at 84. Continue to monitor. Urine drug screen positive for cocaine. Continue supportive care and treat underlying causes. Etiology also likely secondary to cocaine abuse. Diabetes mellitus type 2. Continue Accu-Cheks and sliding scale insulin. ADA diet. Hyponatremia. Resolved. EtOH abuse. ? Delirium tremens. HEENT CIWA protocol. Lactic acidosis. Etiology likely secondary to dehydration. Normally presently. History Interval history: 73-year-old male found down and unresponsive in his yard by a neighbor. Pt is stuporous and unable to provide history. EMS notified and upon arrival the patient was found to be unresponsive and transported to [facility]. Pt seen and evalu ated in ED and found to have Encephalopathy, Hyponatremia,Acidosis. Pt found to cocaine on UDS. Pt suspected to be intoxicated and undergoing ETOH withdwawl in ED. Pt admitted to IMCU and initiated on CIWA protocol. Patient currently requiring restraints and responsive to painful stimuli. Somnolent and lethargic on my exam. Hospitalist Physical - Constitutional Vitals: Temp Pulse Resp BP Pulse Ox 97.4 F L 99 H 32 H 147/89 98 12/09/18 12:00 12/09/18 10:00 12/09/18 10:00 12/09/18 10:00 12/09/18 10:00 General appearance: Present: mild distress - EENT Eyes: Present: PERRL, EOM intact ENT: hearing intact, clear oral mucosa, dentition normal - Neck Neck: Present: supple, normal ROM - Respiratory Respiratory effort: normal Respiratory: bilateral: CTA - Cardiovascular Rhythm: regular Heart Sounds: Present: S1 & S2. Absent: gallop, rub - Extremities Extremities: no ischemia, No edema, Full ROM - Abdominal General gastrointestinal: soft, non-tender, non-distended, normal bowel sounds - Integumentary Integumentary: Present: clear, warm, dry - Neurologic Neurologic: CNII-XII intact, moves all extremities Results - Labs CBC & Chem 7: 12/09/18 04:12 12/09/18 04:12 Labs: Laboratory Last Values WBC 6.7 K/mm3 (4.5-11.0) 12/09/18 04:12 RBC 6.46 M/mm3 (3.65-5.03) H 12/09/18 04:12 Hgb 14.6 gm/dl (11.8-15.2) 12/09/18 04:12 Hct 46.1 % (35.5-45.6) H 12/09/18 04:12 MCV 71 fl (84-94) L 12/09/18 04:12 MCH 23 pg (28-32) L 12/09/18 04:12 MCHC 32 % (32-34) 12/09/18 04:12 RDW 16.6 % (13.2-15.2) H 12/09/18 04:12 Plt Count 187 K/mm3 (140-440) 12/09/18 04:12 Lymph % (Auto) 11.6 % (13.4-35.0) L 12/09/18 04:12 [place] % (Auto) 11.3 % (0.0-7.3) H 12/09/18 04:12 Eos % (Auto) 0.8 % (0.0-4.3) 12/09/18 04:12 Baso % (Auto) 0.4 % (0.0-1.8) 12/09/18 04:12 Lymph # 0.8 K/mm3 (1.2-5.4) L 12/09/18 04:12 [place] # 0.8 K/mm3 (0.0-0.8) 12/09/18 04:12 Eos # 0.1 K/mm3 (0.0-0.4) 12/09/18 04:12 Baso # 0.0 K/mm3 (0.0-0.1) 12/09/18 04:12 Add Manual Diff Complete 12/07/18 16:49 Total Counted 100 12/07/18 16:49 Seg Neutrophils % 75.9 % (40.0-70.0) H 12/09/18 04:12 Seg Neuts % (Manual) 91.0 % (40.0-70.0) H 12/07/18 16:49 0 % 12/07/18 16:49 5.0 % (13.4-35.0) L 12/07/18 16:49 Reactive Lymphs % (Man) 0 % 12/07/18 16:49 4.0 % (0.0-7.3) 12/07/18 16:49 0 % (0.0-4.3) 12/07/18 16:49 0 % (0.0-1.8) 12/07/18 16:49 0 % 12/07/18 16:49 0 % 12/07/18 16:49 0 % 12/07/18 16:49 0 % 12/07/18 16:49 Nucleated RBC % Not Reportable 12/07/18 16:49 Seg Neutrophils # 5.1 K/mm3 (1.8-7.7) 12/09/18 04:12 Seg Neutrophils # Man 9.0 K/mm3 (1.8-7.7) H 12/07/18 16:49 Band Neutrophils # 0.0 K/mm3 12/07/18 16:49 0.5 K/mm3 (1.2-5.4) L 12/07/18 16:49 Abs React Lymphs (Man) 0.0 K/mm3 12/07/18 16:49 0.4 K/mm3 (0.0-0.8) 12/07/18 16:49 0.0 K/mm3 (0.0-0.4) 12/07/18 16:49 0.0 K/mm3 (0.0-0.1) 12/07/18 16:49 0.0 K/mm3 12/07/18 16:49 0.0 K/mm3 12/07/18 16:49 0.0 K/mm3 12/07/18 16:49 Blast Cells # 0.0 K/mm3 12/07/18 16:49 WBC Morphology Not Reportable 12/07/18 16:49 Hypersegmented Neuts Not Reportable 12/07/18 16:49 Hyposegmented Neuts Not Reportable 12/07/18 16:49 Hypogranular Neuts Not Reportable 12/07/18 16:49 Not Reportable 12/07/18 16:49 Not Reportable 12/07/18 16:49 Not Reportable 12/07/18 16:49 Not Reportable 12/07/18 16:49 Not Reportable 12/07/18 16:49 Not Reportable 12/07/18 16:49 Not Reportable 12/07/18 16:49 Not Reportable 12/07/18 16:49 Plt Clumps, EDTA Not Reportable 12/07/18 16:49 Not Reportable 12/07/18 16:49 Not Reportable 12/07/18 16:49 Not Reportable 12/07/18 16:49 Plt Morphology Comment Not Reportable 12/07/18 16:49 RBC Morphology Not Reportable 12/07/18 16:49 Dimorphic RBCs Not Reportable 12/07/18 16:49 Not Reportable 12/07/18 16:49 1+ 12/07/18 16:49 Not Reportable 12/07/18 16:49 Not Reportable 12/07/18 16:49 Not Reportable 12/07/18 16:49 Not Reportable 12/07/18 16:49 Not Reportable 12/07/18 16:49 Not Reportable 12/07/18 16:49 Not Reportable 12/07/18 16:49 Not Reportable 12/07/18 16:49 Not Reportable 12/07/18 16:49 Not Reportable 12/07/18 16:49 Not Reportable 12/07/18 16:49 Not Reportable 12/07/18 16:49 Not Reportable 12/07/18 16:49 Not Reportable 12/07/18 16:49 Not Reportable 12/07/18 16:49 Not Reportable 12/07/18 16:49 Not Reportable 12/07/18 16:49 Acanthocytes (Spur) Not Reportable 12/07/18 16:49 Rouleaux Not Reportable 12/07/18 16:49 Not Reportable 12/07/18 16:49 Not Reportable 12/07/18 16:49 Not Reportable 12/07/18 16:49 Not Reportable 12/07/18 16:49 Hem Pathologist Commnt No 12/07/18 16:49 PT 13.1 Sec. (12.2-14.9) 12/07/18 16:49 INR 1.02 (0.87-1.13) 12/07/18 16:49 APTT 26.6 Sec. (24.2-36.6) 12/07/18 16:49 > 58245 ng/mlDDU (0-234) H 12/07/18 Unknown Sodium 140 mmol/L (137-145) 12/09/18 04:12 Potassium 3.6 mmol/L (3.6-5.0) 12/09/18 04:12 Chloride 100.3 mmol/L (98-107) 12/09/18 04:12 Carbon Dioxide 22 mmol/L (22-30) 12/09/18 04:12 21 mmol/L 12/09/18 04:12 BUN 17 mg/dL (9-20) 12/09/18 04:12 0.9 mg/dL (0.8-1.5) 12/09/18 04:12 Estimated GFR > 60 ml/min 12/09/18 04:12 19 % 12/09/18 04:12 Glucose 106 mg/dL (75-100) H 12/09/18 04:12 POC Glucose 219 (70-105) H 12/09/18 12:26 Lactic Acid 1.10 mmol/L (0.7-2.0) 12/08/18 09:15 Calcium 9.5 mg/dL (8.4-10.2) 12/09/18 04:12 0.80 mg/dL (0.1-1.2) 12/08/18 05:03 AST 28 units/L (5-40) 12/08/18 05:03 ALT 16 units/L (7-56) 12/08/18 05:03 56 units/L (35-129) 12/08/18 05:03 59.0 umol/L (25-60) 12/09/18 04:12 < 0.010 ng/mL (0.00-0.029) 12/07/18 16:49 NT-Pro-B Natriuret Pep 357.9 pg/mL (0-900) 12/07/18 Unknown 6.5 g/dL (6.3-8.2) 12/08/18 05:03 3.5 g/dL (3.9-5) L 12/08/18 05:03 1.2 % 12/08/18 05:03 Amylase 52 units/L (27-131) 12/07/18 18:01 TSH 0.650 mlU/mL (0.270-4.200) 12/07/18 20:24 Free T4 1.36 ng/dL (0.76-1.46) 12/07/18 20:24 Yellow (Yellow) 12/07/18 17:36 Clear (Clear) 12/07/18 17:36 7.0 (5.0-7.0) 12/07/18 17:36 Ur Specific [place] 1.018 (1.003-1.030) 12/07/18 17:36 30 mg/dl mg/dL (Negative) 12/07/18 17:36 >=500 mg/dL (Negative) 12/07/18 17:36 20 mg/dL (Negative) 12/07/18 17:36 Sm (Negative) 12/07/18 17:36 Neg (Negative) 12/07/18 17:36 Neg (Negative) 12/07/18 17:36 < 2.0 mg/dL (<2.0) 12/07/18 17:36 Ur Leukocyte Esterase Neg (Negative) 12/07/18 17:36 2.0 /HPF (0.0-6.0) 12/07/18 17:36 4.0 /HPF (0.0-6.0) 12/07/18 17:36 Hyaline Casts 1 /LPF 12/07/18 17:36 Few /HPF 12/07/18 17:36 Presumptive negative 12/07/18 17:36 Presumptive negative 12/07/18 17:36 Ur Barbiturates Screen Presumptive negative 12/07/18 17:36 Ur Phencyclidine Scrn Presumptive negative 12/07/18 17:36 Ur Amphetamines Screen Presumptive negative 12/07/18 17:36 U Benzodiazepines Scrn Presumptive negative 12/07/18 17:36 Presumptive positive 12/07/18 17:36 U Marijuana (THC) Screen Presumptive negative 12/07/18 17:36 Disclamer 12/07/18 17:36 Plasma/Serum Alcohol < 0.01 % (0-0.07) 12/07/18 16:49 Active Medications - Current Medications Current Medications: Generic Name Dose Route Start Last Admin Trade Name Freq PRN Reason Stop Dose Admin Albuterol 2.5 mg 12/07/18 20:06 Proventil IH Q3HRT PRN Shortness Of Breath Dextrose 50 ml 12/07/18 20:21 D50w (25gm) Syringe IV PRN PRN Hypoglycemia Hydralazine HCl 10 mg 12/07/18 20:11 12/09/18 06:21 Apresoline IV 10 mg Q6HR PRN Administration Hypertension Sodium Chloride 1,000 mls @ 100 mls/hr 12/07/18 21:00 12/09/18 11:20 Nacl 0.9% 1000 Ml IV 100 mls/hr DIRECT RACHELL Administration Insulin Human Lispro 0 unit 12/07/18 22:00 12/09/18 10:21 Humalog SUB-Q Not Given ACHS RACHELL Protocol Lactulose 20 gm 12/08/18 12:26 Cephulac PO Q8H PRN Constipation Sodium Chloride 10 ml 12/07/18 22:00 12/09/18 10:22 Sodium Chloride Flush Syringe 10 Ml IV 10 ml BID RACHELL Administration Sodium Chloride 10 ml 12/07/18 20:06 Sodium Chloride Flush Syringe 10 Ml IV PRN PRN LINE FLUSH
[2018-12-10 05:17] LABS: Basophils % (Auto) 0.5 % (0.0-1.8); Eosinophils # (Auto) 0.2 K/mm3 (0.0-0.4); Eosinophils % (Auto) 2.9 % (0.0-4.3); Hematocrit 43.4 % (35.5-45.6); Hemoglobin 13.8 gm/dl (11.8-15.2); Lymphocytes # (Auto) 0.6 K/mm3 (1.2-5.4); Lymphocytes % (Auto) 9.9 % (13.4-35.0); Mean Corpuscular HGB Conc 32 % (32-34); Mean Corpuscular Volume 71 fl (84-94); Monocytes # (Auto) 0.7 K/mm3 (0.0-0.8); Monocytes % (Auto) 11.3 % (0.0-7.3); Platelet Count 172 K/mm3 (140-440); Red Blood Count 6.16 M/mm3 (3.65-5.03); Red Cell Distribution Width 15.9 % (13.2-15.2)
[2018-12-10 05:38] LABS: BUN/Creatinine Ratio 19; Blood Urea Nitrogen 17 mg/dL (9-20); Calcium 9.1 mg/dL (8.4-10.2); Hemolysis Index 7
[2018-12-10] MEDS: NACL 0.9% 1000 ML 1,000 ML IV SCH ×2 (05:56→22:58)
[2018-12-10] MEDS: HumaLOG SUB-Q SCH ×4 (08:03→23:50)
--- NOTE | 2018-12-10 08:40 | Progress Note ---
Assessment and Plan Assessment and plan: Hepatic encephalopathy. Resolving. CT scan of the head negative. Ammonia level normalized. Continue to monitor. Urine drug screen positive for cocaine. Diabetes mellitus type 2. Continue Accu-Cheks and sliding scale insulin. ADA diet. Hyponatremia. Resolved. EtOH abuse/Delirium tremens. CIWA protocol. Cocaine abuse. Counseled on cessation Disposition. PT eval History Interval history: 73-year-old male found down and unresponsive in his yard by a neighbor. Pt is stuporous and unable to provide history. EMS notified and upon arrival the p jacky was found to be unresponsive and transported to [facility]. Pt seen and evaluated in ED and found to have Encephalopathy, Hyponatremia,Acidosis. Pt found to cocaine on UDS. Pt suspected to be intoxicated and undergoing ETOH withdwawl in ED. Pt admitted to IMCU and initiated on CIWA protocol. Pt more alert and responsive. He admits to using crack cocaine prior to admission Hospitalist Physical - Constitutional Vitals: Temp Pulse Resp BP Pulse Ox 98 F 96 H 20 154/82 97 12/10/18 02:21 12/10/18 02:21 12/10/18 02:21 12/10/18 02:21 12/10/18 02:21 General appearance: Present: mild distress - EENT Eyes: Present: PERRL, EOM intact ENT: hearing intact, clear oral mucosa, dentition normal - Neck Neck: Present: supple, normal ROM - Respiratory Respiratory effort: normal Respiratory: bilateral: CTA - Cardiovascular Rhythm: regular Heart Sounds: Present: S1 & S2. Absent: gallop, rub - Extremities Extremities: no ischemia, No edema, Full ROM - Abdominal General gastrointestinal: soft, non-tender, non-distended, normal bowel sounds - Integumentary Integumentary: Present: clear, warm, dry - Neurologic Neurologic: CNII-XII intact, moves all extremities Results - Labs CBC & Chem 7: 12/10/18 04:51 12/10/18 04:51 Labs: Laboratory Last Values WBC 6.4 K/mm3 (4.5-11.0) 12/10/18 04:51 RBC 6.16 M/mm3 (3.65-5.03) H 12/10/18 04:51 Hgb 13.8 gm/dl (11.8-15.2) 12/10/18 04:51 Hct 43.4 % (35.5-45.6) 12/10/18 04:51 MCV 71 fl (84-94) L 12/10/18 04:51 MCH 22 pg (28-32) L 12/10/18 04:51 MCHC 32 % (32-34) 12/10/18 04:51 RDW 15.9 % (13.2-15.2) H 12/10/18 04:51 Plt Count 172 K/mm3 (140-440) 12/10/18 04:51 Lymph % (Auto) 9.9 % (13.4-35.0) L 12/10/18 04:51 [place] % (Auto) 11.3 % (0.0-7.3) H 12/10/18 04:51 Eos % (Auto) 2.9 % (0.0-4.3) 12/10/18 04:51 Baso % (Auto) 0.5 % (0.0-1.8) 12/10/18 04:51 Lymph # 0.6 K/mm3 (1.2-5.4) L 12/10/18 04:51 [place] # 0.7 K/mm3 (0.0-0.8) 12/10/18 04:51 Eos # 0.2 K/mm3 (0.0-0.4) 12/10/18 04:51 Baso # 0.0 K/mm3 (0.0-0.1) 12/10/18 04:51 Add Manual Diff Complete 12/07/18 16:49 Total Counted 100 12/07/18 16:49 Seg Neutrophils % 75.4 % (40.0-70.0) H 12/10/18 04:51 Seg Neuts % (Manual) 91.0 % (40.0-70.0) H 12/07/18 16:49 0 % 12/07/18 16:49 5.0 % (13.4-35.0) L 12/07/18 16:49 Reactive Lymphs % (Man) 0 % 12/07/18 16:49 4.0 % (0.0-7.3) 12/07/18 16:49 0 % (0.0-4.3) 12/07/18 16:49 0 % (0.0-1.8) 12/07/18 16:49 0 % 12/07/18 16:49 0 % 12/07/18 16:49 0 % 12/07/18 16:49 0 % 12/07/18 16:49 Nucleated RBC % Not Reportable 12/07/18 16:49 Seg Neutrophils # 4.8 K/mm3 (1.8-7.7) 12/10/18 04:51 Seg Neutrophils # Man 9.0 K/mm3 (1.8-7.7) H 12/07/18 16:49 Band Neutrophils # 0.0 K/mm3 12/07/18 16:49 0.5 K/mm3 (1.2-5.4) L 12/07/18 16:49 Abs React Lymphs (Man) 0.0 K/mm3 12/07/18 16:49 0.4 K/mm3 (0.0-0.8) 12/07/18 16:49 0.0 K/mm3 (0.0-0.4) 12/07/18 16:49 0.0 K/mm3 (0.0-0.1) 12/07/18 16:49 0.0 K/mm3 12/07/18 16:49 0.0 K/mm3 12/07/18 16:49 0.0 K/mm3 12/07/18 16:49 Blast Cells # 0.0 K/mm3 12/07/18 16:49 WBC Morphology Not Reportable 12/07/18 16:49 Hypersegmented Neuts Not Reportable 12/07/18 16:49 Hyposegmented Neuts Not Reportable 12/07/18 16:49 Hypogranular Neuts Not Reportable 12/07/18 16:49 Not Reportable 12/07/18 16:49 Not Reportable 12/07/18 16:49 Not Reportable 12/07/18 16:49 Not Reportable 12/07/18 16:49 Not Reportable 12/07/18 16:49 Not Reportable 12/07/18 16:49 Not Reportable 12/07/18 16:49 Not Reportable 12/07/18 16:49 Plt Clumps, EDTA Not Reportable 12/07/18 16:49 Not Reportable 12/07/18 16:49 Not Reportable 12/07/18 16:49 Not Reportable 12/07/18 16:49 Plt Morphology Comment Not Reportable 12/07/18 16:49 RBC Morphology Not Reportable 12/07/18 16:49 Dimorphic RBCs Not Reportable 12/07/18 16:49 Not Reportable 12/07/18 16:49 1+ 12/07/18 16:49 Not Reportable 12/07/18 16:49 Not Reportable 12/07/18 16:49 Not Reportable 12/07/18 16:49 Not Reportable 12/07/18 16:49 Not Reportable 12/07/18 16:49 Not Reportable 12/07/18 16:49 Not Reportable 12/07/18 16:49 Not Reportable 12/07/18 16:49 Not Reportable 12/07/18 16:49 Not Reportable 12/07/18 16:49 Not Reportable 12/07/18 16:49 Not Reportable 12/07/18 16:49 Not Reportable 12/07/18 16:49 Not Reportable 12/07/18 16:49 Not Reportable 12/07/18 16:49 Not Reportable 12/07/18 16:49 Not Reportable 12/07/18 16:49 Acanthocytes (Spur) Not Reportable 12/07/18 16:49 Rouleaux Not Reportable 12/07/18 16:49 Not Reportable 12/07/18 16:49 Not Reportable 12/07/18 16:49 Not Reportable 12/07/18 16:49 Not Reportable 12/07/18 16:49 Hem Pathologist Commnt No 12/07/18 16:49 PT 13.1 Sec. (12.2-14.9) 12/07/18 16:49 INR 1.02 (0.87-1.13) 12/07/18 16:49 APTT 26.6 Sec. (24.2-36.6) 12/07/18 16:49 > 27150 ng/mlDDU (0-234) H 12/07/18 Unknown Sodium 140 mmol/L (137-145) 12/10/18 04:51 Potassium 3.5 mmol/L (3.6-5.0) L 12/10/18 04:51 Chloride 102.5 mmol/L (98-107) 12/10/18 04:51 Carbon Dioxide 20 mmol/L (22-30) L 12/10/18 04:51 21 mmol/L 12/10/18 04:51 BUN 17 mg/dL (9-20) 12/10/18 04:51 0.9 mg/dL (0.8-1.5) 12/10/18 04:51 Estimated GFR > 60 ml/min 12/10/18 04:51 19 % 12/10/18 04:51 Glucose 148 mg/dL (75-100) H 12/10/18 04:51 POC Glucose 211 (70-105) H 12/10/18 07:48 Lactic Acid 1.10 mmol/L (0.7-2.0) 12/08/18 09:15 Calcium 9.1 mg/dL (8.4-10.2) 12/10/18 04:51 0.80 mg/dL (0.1-1.2) 12/08/18 05:03 AST 28 units/L (5-40) 12/08/18 05:03 ALT 16 units/L (7-56) 12/08/18 05:03 56 units/L (35-129) 12/08/18 05:03 30.0 umol/L (25-60) 12/10/18 04:51 < 0.010 ng/mL (0.00-0.029) 12/07/18 16:49 NT-Pro-B Natriuret Pep 357.9 pg/mL (0-900) 12/07/18 Unknown 6.5 g/dL (6.3-8.2) 12/08/18 05:03 3.5 g/dL (3.9-5) L 12/08/18 05:03 1.2 % 12/08/18 05:03 Amylase 52 units/L (27-131) 12/07/18 18:01 TSH 0.650 mlU/mL (0.270-4.200) 12/07/18 20:24 Free T4 1.36 ng/dL (0.76-1.46) 12/07/18 20:24 Yellow (Yellow) 12/07/18 17:36 Clear (Clear) 12/07/18 17:36 7.0 (5.0-7.0) 12/07/18 17:36 Ur Specific [place] 1.018 (1.003-1.030) 12/07/18 17:36 30 mg/dl mg/dL (Negative) 12/07/18 17:36 >=500 mg/dL (Negative) 12/07/18 17:36 20 mg/dL (Negative) 12/07/18 17:36 Sm (Negative) 12/07/18 17:36 Neg (Negative) 12/07/18 17:36 Neg (Negative) 12/07/18 17:36 < 2.0 mg/dL (<2.0) 12/07/18 17:36 Ur Leukocyte Esterase Neg (Negative) 12/07/18 17:36 2.0 /HPF (0.0-6.0) 12/07/18 17:36 4.0 /HPF (0.0-6.0) 12/07/18 17:36 Hyaline Casts 1 /LPF 12/07/18 17:36 Few /HPF 12/07/18 17:36 Presumptive negative 12/07/18 17:36 Presumptive negative 12/07/18 17:36 Ur Barbiturates Screen Presumptive negative 12/07/18 17:36 Ur Phencyclidine Scrn Presumptive negative 12/07/18 17:36 Ur Amphetamines Screen Presumptive negative 12/07/18 17:36 U Benzodiazepines Scrn Presumptive negative 12/07/18 17:36 Presumptive positive 12/07/18 17:36 U Marijuana (THC) Screen Presumptive negative 12/07/18 17:36 Disclamer 12/07/18 17:36 Plasma/Serum Alcohol < 0.01 % (0-0.07) 12/07/18 16:49 Active Medications - Current Medications Current Medications: Generic Name Dose Route Start Last Admin Trade Name Freq PRN Reason Stop Dose Admin Albuterol 2.5 mg 12/07/18 20:06 Proventil IH Q3HRT PRN Shortness Of Breath Dextrose 50 ml 12/07/18 20:21 D50w (25gm) Syringe IV PRN PRN Hypoglycemia Hydralazine HCl 10 mg 12/07/18 20:11 12/09/18 06:21 Apresoline IV 10 mg Q6HR PRN Administration Hypertension Sodium Chloride 1,000 mls @ 100 mls/hr 12/07/18 21:00 12/10/18 05:56 Nacl 0.9% 1000 Ml IV 100 mls/hr DIRECT RACHELL Administration Insulin Human Lispro 0 unit 12/07/18 22:00 12/10/18 08:03 Humalog SUB-Q 3 unit ACHS RACHELL Administration Protocol Lactulose 20 gm 12/08/18 12:26 Cephulac PO Q8H PRN Constipation Sodium Chloride 10 ml 12/07/18 22:00 12/09/18 22:23 Sodium Chloride Flush Syringe 10 Ml IV 10 ml BID RACHELL Administration Sodium Chloride 10 ml 12/07/18 20:06 Sodium Chloride Flush Syringe 10 Ml IV PRN PRN LINE FLUSH
[2018-12-10] MEDS: SODIUM CHLORIDE FLUSH SYRINGE 10 ML IV SCH ×2 (09:34→23:00)
[2018-12-10] MEDS ORDERED: ATIVAN IV PRN (22:38)
[2018-12-10] MEDS: ATIVAN IV PRN ×2 (22:59→23:58)
[2018-12-11] MEDS: HumaLOG SUB-Q SCH ×4 (08:22→22:28)
[2018-12-11] MEDS: APRESOLINE IV PRN (08:56)
[2018-12-11] MEDS: SODIUM CHLORIDE FLUSH SYRINGE 10 ML IV SCH ×2 (09:00→22:30)
--- NOTE | 2018-12-11 11:34 | Progress Note ---
Subjective Date of service: 12/11/18 Interval history: A/P: Hepatic encephalopathy. Resolving. CT scan of the head negative. Ammonia level normalized. Continue to monitor. Urine drug screen positive for cocaine. still lethargic , although easily aroused ? Etiology: Dementia versus metabolic encephalopathy Hypertensive urgency: Start the patient on ARB. Continue IV hydralazine as needed Diabetes mellitus type 2. Continue Accu-Cheks and sliding scale insulin. ADA diet. Hyponatremia. Resolved. EtOH abuse/Delirium tremens. Continue CIWA protocol. Cocaine abuse. Counseled on cessation Disposition. PT eval pending Subjective Poor historian Lethargic, easily aroused with voice stimulus Unable to perform detailed review of systems, suspect dementia Objective - Constitutional Vitals: Vital Signs - 12hr 12/11/18 12/11/18 12/11/18 00:41 07:33 07:34 Temperature 98.7 F 97.8 F Pulse Rate 77 89 86 Respiratory 18 18 Rate Blood Pressure 177/97 195/144 O2 Sat by Pulse 94 99 98 Oximetry 12/11/18 08:56 Temperature Pulse Rate 89 Respiratory Rate Blood Pressure 175/110 O2 Sat by Pulse Oximetry General appearance: Present: no acute distress, other (confused and lethargic) - EENT Eyes: PERRL, EOM intact ENT: hearing intact - Neck Neck: supple, normal ROM, no masses or JVD - Respiratory Respiratory effort: normal Respiratory: bilateral: CTA, diminished - Cardiovascular Rhythm: other (mildly tachycardiac) Heart Sounds: Present: S1 & S2 Extremities: No edema - Gastrointestinal General gastrointestinal: Present: soft, non-tender Rectal Exam: deferred - Integumentary Integumentary: clear - Musculoskeletal Musculoskeletal: other (all extremities) - Neurologic Neurologic: other (gait not tested) - Psychiatric Psychiatric: other (lethargic) - Labs CBC & Chem 7: 12/10/18 04:51 12/10/18 04:51 Labs: Abnormal lab results 12/10/18 12/10/18 12/10/18 Range/Units 11:18 16:31 21:34 POC Glucose 193 H 256 H 276 H (70-105) 12/11/18 Range/Units 07:33 POC Glucose 171 H (70-105)
[2018-12-11] MEDS: COZAAR PO SCH (12:32)
[2018-12-11] MEDS: NACL 0.9% 1000 ML 1,000 ML IV SCH (16:38)
[2018-12-11] MEDS ORDERED: HumaLOG SUB-Q ONE (17:30)
[2018-12-12] MEDS: NACL 0.9% 1000 ML 1,000 ML IV SCH ×2 (02:40→12:59)
[2018-12-12 06:01] LABS: BUN/Creatinine Ratio 13; Blood Urea Nitrogen 9 mg/dL (9-20); Calcium 8.1 mg/dL (8.4-10.2); Hemolysis Index 5
[2018-12-12] MEDS: HumaLOG SUB-Q SCH ×4 (09:02→22:09)
[2018-12-12] MEDS: K-DUR PO SCH ×2 (09:33→15:27)
[2018-12-12] MEDS: COZAAR PO SCH (09:33)
[2018-12-12] MEDS: APRESOLINE IV PRN ×2 (09:35→22:14)
[2018-12-12] MEDS: SODIUM CHLORIDE FLUSH SYRINGE 10 ML IV SCH ×2 (12:54→22:10)
--- NOTE | 2018-12-12 14:09 | Progress Note ---
Assessment and Plan Assessment and plan: A/P: Hepatic encephalopathy. Resolving. CT scan of the head negative. Ammonia level normalized. Continue to monitor. Urine drug screen positive for cocaine. still lethargic , although easily aroused Hypertensive urgency: Started on ARB. Continue IV hydralazine as needed Diabetes mellitus type 2. Continue Accu-Cheks and sliding scale insulin. ADA diet. Hyponatremia. Resolved. EtOH abuse/Delirium tremens. Continue CIWA protocol. Cocaine abuse. Counseled on cessation History Interval history: Patient with alcohol abuse, cocaine use Hospitalist Physical - Physical exam Narrative exam: Gen: Not in acute distress, lying in bed, HEENT: Normocephalic, atraumatic Neck: supple, no JVD Heart: S1 and S2 reg, no murmurs, rubs or gallop Lungs: Clear to auscultation, no wheeze Abd: soft, non tender, non distended, normal BS, Ext: No edema, no clubbing, no cyanosis Neuro: lethargic - Constitutional Vitals: Temp Pulse Resp BP Pulse Ox 99 F 98 H 18 178/110 98 12/12/18 09:06 12/12/18 09:35 12/12/18 09:06 12/12/18 09:35 12/12/18 10:00 General appearance: Present: no acute distress, other (confused and lethargic) Results - Labs CBC & Chem 7: 12/10/18 04:51 12/12/18 04:37 Labs: Laboratory Last Values WBC 6.4 K/mm3 (4.5-11.0) 12/10/18 04:51 RBC 6.16 M/mm3 (3.65-5.03) H 12/10/18 04:51 Hgb 13.8 gm/dl (11.8-15.2) 12/10/18 04:51 Hct 43.4 % (35.5-45.6) 12/10/18 04:51 MCV 71 fl (84-94) L 12/10/18 04:51 MCH 22 pg (28-32) L 12/10/18 04:51 MCHC 32 % (32-34) 12/10/18 04:51 RDW 15.9 % (13.2-15.2) H 12/10/18 04:51 Plt Count 172 K/mm3 (140-440) 12/10/18 04:51 Lymph % (Auto) 9.9 % (13.4-35.0) L 12/10/18 04:51 [place] % (Auto) 11.3 % (0.0-7.3) H 12/10/18 04:51 Eos % (Auto) 2.9 % (0.0-4.3) 12/10/18 04:51 Baso % (Auto) 0.5 % (0.0-1.8) 12/10/18 04:51 Lymph # 0.6 K/mm3 (1.2-5.4) L 12/10/18 04:51 [place] # 0.7 K/mm3 (0.0-0.8) 12/10/18 04:51 Eos # 0.2 K/mm3 (0.0-0.4) 12/10/18 04:51 Baso # 0.0 K/mm3 (0.0-0.1) 12/10/18 04:51 Add Manual Diff Complete 12/07/18 16:49 Total Counted 100 12/07/18 16:49 Seg Neutrophils % 75.4 % (40.0-70.0) H 12/10/18 04:51 Seg Neuts % (Manual) 91.0 % (40.0-70.0) H 12/07/18 16:49 0 % 12/07/18 16:49 5.0 % (13.4-35.0) L 12/07/18 16:49 Reactive Lymphs % (Man) 0 % 12/07/18 16:49 4.0 % (0.0-7.3) 12/07/18 16:49 0 % (0.0-4.3) 12/07/18 16:49 0 % (0.0-1.8) 12/07/18 16:49 0 % 12/07/18 16:49 0 % 12/07/18 16:49 0 % 12/07/18 16:49 0 % 12/07/18 16:49 Nucleated RBC % Not Reportable 12/07/18 16:49 Seg Neutrophils # 4.8 K/mm3 (1.8-7.7) 12/10/18 04:51 Seg Neutrophils # Man 9.0 K/mm3 (1.8-7.7) H 12/07/18 16:49 Band Neutrophils # 0.0 K/mm3 12/07/18 16:49 0.5 K/mm3 (1.2-5.4) L 12/07/18 16:49 Abs React Lymphs (Man) 0.0 K/mm3 12/07/18 16:49 0.4 K/mm3 (0.0-0.8) 12/07/18 16:49 0.0 K/mm3 (0.0-0.4) 12/07/18 16:49 0.0 K/mm3 (0.0-0.1) 12/07/18 16:49 0.0 K/mm3 12/07/18 16:49 0.0 K/mm3 12/07/18 16:49 0.0 K/mm3 12/07/18 16:49 Blast Cells # 0.0 K/mm3 12/07/18 16:49 WBC Morphology Not Reportable 12/07/18 16:49 Hypersegmented Neuts Not Reportable 12/07/18 16:49 Hyposegmented Neuts Not Reportable 12/07/18 16:49 Hypogranular Neuts Not Reportable 12/07/18 16:49 Not Reportable 12/07/18 16:49 Not Reportable 12/07/18 16:49 Not Reportable 12/07/18 16:49 Not Reportable 12/07/18 16:49 Not Reportable 12/07/18 16:49 Not Reportable 12/07/18 16:49 Not Reportable 12/07/18 16:49 Not Reportable 12/07/18 16:49 Plt Clumps, EDTA Not Reportable 12/07/18 16:49 Not Reportable 12/07/18 16:49 Not Reportable 12/07/18 16:49 Not Reportable 12/07/18 16:49 Plt Morphology Comment Not Reportable 12/07/18 16:49 RBC Morphology Not Reportable 12/07/18 16:49 Dimorphic RBCs Not Reportable 12/07/18 16:49 Not Reportable 12/07/18 16:49 1+ 12/07/18 16:49 Not Reportable 12/07/18 16:49 Not Reportable 12/07/18 16:49 Not Reportable 12/07/18 16:49 Not Reportable 12/07/18 16:49 Not Reportable 12/07/18 16:49 Not Reportable 12/07/18 16:49 Not Reportable 12/07/18 16:49 Not Reportable 12/07/18 16:49 Not Reportable 12/07/18 16:49 Not Reportable 12/07/18 16:49 Not Reportable 12/07/18 16:49 Not Reportable 12/07/18 16:49 Not Reportable 12/07/18 16:49 Not Reportable 12/07/18 16:49 Not Reportable 12/07/18 16:49 Not Reportable 12/07/18 16:49 Not Reportable 12/07/18 16:49 Acanthocytes (Spur) Not Reportable 12/07/18 16:49 Rouleaux Not Reportable 12/07/18 16:49 Not Reportable 12/07/18 16:49 Not Reportable 12/07/18 16:49 Not Reportable 12/07/18 16:49 Not Reportable 12/07/18 16:49 Hem Pathologist Commnt No 12/07/18 16:49 PT 13.1 Sec. (12.2-14.9) 12/07/18 16:49 INR 1.02 (0.87-1.13) 12/07/18 16:49 APTT 26.6 Sec. (24.2-36.6) 12/07/18 16:49 > 39218 ng/mlDDU (0-234) H 12/07/18 Unknown Sodium 139 mmol/L (137-145) 12/12/18 04:37 Potassium 3.5 mmol/L (3.6-5.0) L 12/12/18 04:37 Chloride 105.8 mmol/L (98-107) 12/12/18 04:37 Carbon Dioxide 24 mmol/L (22-30) 12/12/18 04:37 13 mmol/L 12/12/18 04:37 BUN 9 mg/dL (9-20) 12/12/18 04:37 0.7 mg/dL (0.8-1.5) L 12/12/18 04:37 Estimated GFR > 60 ml/min 12/12/18 04:37 13 % 12/12/18 04:37 Glucose 259 mg/dL (75-100) H 12/12/18 04:37 POC Glucose 232 (70-105) H 12/12/18 11:35 Lactic Acid 1.10 mmol/L (0.7-2.0) 12/08/18 09:15 Calcium 8.1 mg/dL (8.4-10.2) L 12/12/18 04:37 Magnesium 1.60 mg/dL (1.7-2.3) L 12/12/18 04:37 0.80 mg/dL (0.1-1.2) 12/08/18 05:03 AST 28 units/L (5-40) 12/08/18 05:03 ALT 16 units/L (7-56) 12/08/18 05:03 56 units/L (35-129) 12/08/18 05:03 30.0 umol/L (25-60) 12/10/18 04:51 < 0.010 ng/mL (0.00-0.029) 12/07/18 16:49 NT-Pro-B Natriuret Pep 357.9 pg/mL (0-900) 12/07/18 Unknown 6.5 g/dL (6.3-8.2) 12/08/18 05:03 3.5 g/dL (3.9-5) L 12/08/18 05:03 1.2 % 12/08/18 05:03 Amylase 52 units/L (27-131) 12/07/18 18:01 TSH 0.650 mlU/mL (0.270-4.200) 12/07/18 20:24 Free T4 1.36 ng/dL (0.76-1.46) 12/07/18 20:24 Yellow (Yellow) 12/07/18 17:36 Clear (Clear) 12/07/18 17:36 7.0 (5.0-7.0) 12/07/18 17:36 Ur Specific [place] 1.018 (1.003-1.030) 12/07/18 17:36 30 mg/dl mg/dL (Negative) 12/07/18 17:36 >=500 mg/dL (Negative) 12/07/18 17:36 20 mg/dL (Negative) 12/07/18 17:36 Sm (Negative) 12/07/18 17:36 Neg (Negative) 12/07/18 17:36 Neg (Negative) 12/07/18 17:36 < 2.0 mg/dL (<2.0) 12/07/18 17:36 Ur Leukocyte Esterase Neg (Negative) 12/07/18 17:36 2.0 /HPF (0.0-6.0) 12/07/18 17:36 4.0 /HPF (0.0-6.0) 12/07/18 17:36 Hyaline Casts 1 /LPF 12/07/18 17:36 Few /HPF 12/07/18 17:36 Presumptive negative 12/07/18 17:36 Presumptive negative 12/07/18 17:36 Ur Barbiturates Screen Presumptive negative 12/07/18 17:36 Ur Phencyclidine Scrn Presumptive negative 12/07/18 17:36 Ur Amphetamines Screen Presumptive negative 12/07/18 17:36 U Benzodiazepines Scrn Presumptive negative 12/07/18 17:36 Presumptive positive 12/07/18 17:36 U Marijuana (THC) Screen Presumptive negative 12/07/18 17:36 Disclamer 12/07/18 17:36 Plasma/Serum Alcohol < 0.01 % (0-0.07) 12/07/18 16:49 Active Medications - Current Medications Current Medications: Generic Name Dose Route Start Last Admin Trade Name Freq PRN Reason Stop Dose Admin Albuterol 2.5 mg 12/07/18 20:06 Proventil IH Q3HRT PRN Shortness Of Breath Dextrose 50 ml 12/07/18 20:21 D50w (25gm) Syringe IV PRN PRN Hypoglycemia Hydralazine HCl 10 mg 12/07/18 20:11 12/12/18 09:35 Apresoline IV 10 mg Q6HR PRN Administration Hypertension Sodium Chloride 1,000 mls @ 100 mls/hr 12/07/18 21:00 12/12/18 12:59 Nacl 0.9% 1000 Ml IV 100 mls/hr DIRECT RACHELL Administration Insulin Human Lispro 0 unit 12/07/18 22:00 12/12/18 12:54 Humalog SUB-Q 3 unit ACHS RACHELL Administration Protocol Lactulose 20 gm 12/08/18 12:26 Cephulac PO Q8H PRN Constipation Lorazepam 4 mg 12/10/18 22:38 Ativan IV Q1H PRN CIWA-Ar 16-25 Lorazepam 2 mg 12/10/18 22:38 12/10/18 23:58 Ativan IV 2 mg Q1H PRN Administration CIWA-Ar 8-15 Losartan Potassium 50 mg 12/11/18 12:00 12/12/18 09:33 Cozaar PO 50 mg QDAY RACHELL Administration Potassium Chloride 40 meq 12/12/18 09:00 12/12/18 09:33 K-Dur PO 12/12/18 15:01 40 meq Q6H RACHELL Administration Sodium Chloride 10 ml 12/07/18 22:00 12/12/18 12:54 Sodium Chloride Flush Syringe 10 Ml IV 10 ml BID RACHELL Administration Sodium Chloride 10 ml 12/07/18 20:06 Sodium Chloride Flush Syringe 10 Ml IV PRN PRN LINE FLUSH
[2018-12-12] MEDS: ATIVAN IV PRN (15:27)
[2018-12-12] MEDS ORDERED: MAGNESIUM SULFATE 3 GM in NACL 0.9% 100 ML IV ONE (17:44)
[2018-12-13] MEDS: NACL 0.9% 1000 ML 1,000 ML IV SCH ×2 (01:59→23:58)
[2018-12-13] MEDS: ATIVAN IV PRN ×3 (03:39→23:58)
[2018-12-13 06:22] LABS: BUN/Creatinine Ratio 13; Blood Urea Nitrogen 9 mg/dL (9-20); Calcium 8.6 mg/dL (8.4-10.2); Hemolysis Index 15
[2018-12-13] MEDS: HumaLOG SUB-Q SCH ×4 (08:34→22:48)
[2018-12-13] MEDS: COZAAR PO SCH ×2 (08:34→10:00)
[2018-12-13] MEDS: SODIUM CHLORIDE FLUSH SYRINGE 10 ML IV SCH ×3 (08:35→22:49)
--- NOTE | 2018-12-13 10:34 | Progress Note ---
Assessment and Plan Assessment and plan: A/P: Hepatic encephalopathy. Resolving. CT scan of the head negative. Ammonia level normalized. Continue to monitor. Urine drug screen positive for cocaine. still lethargic , although easily aroused. oriented to person, place but not to time. Will obtain MRI Brain Hypertensive urgency: Started on ARB. Continue IV hydralazine as needed Diabetes mellitus type 2. Continue Accu-Cheks and sliding scale insulin. ADA diet. Hyponatremia. Resolved. EtOH abuse/Delirium tremens. Continue CIWA protocol. Cocaine abuse. Counseled on cessation History Interval history: Patient with alcohol abuse, cocaine use Still confused Hospitalist Physical - Physical exam Narrative exam: Gen: Not in acute distress, lying in bed, HEENT: Normocephalic, atraumatic Neck: supple, no JVD Heart: S1 and S2 reg, no murmurs, rubs or gallop Lungs: Clear to auscultation, no wheeze Abd: soft, non tender, non distended, normal BS, Ext: No edema, no clubbing, no cyanosis Neuro: lethargic, more responsive, oriented in person, place, not in time,moves all ext - Constitutional Vitals: Temp Pulse Resp BP Pulse Ox 98.0 F 92 H 20 150/98 99 12/13/18 07:12 12/13/18 07:12 12/13/18 07:12 12/13/18 07:12 12/13/18 07:12 General appearance: Present: no acute distress, other (confused and lethargic) Results - Labs CBC & Chem 7: 12/10/18 04:51 12/13/18 05:34 Labs: Laboratory Last Values WBC 6.4 K/mm3 (4.5-11.0) 12/10/18 04:51 RBC 6.16 M/mm3 (3.65-5.03) H 12/10/18 04:51 Hgb 13.8 gm/dl (11.8-15.2) 12/10/18 04:51 Hct 43.4 % (35.5-45.6) 12/10/18 04:51 MCV 71 fl (84-94) L 12/10/18 04:51 MCH 22 pg (28-32) L 12/10/18 04:51 MCHC 32 % (32-34) 12/10/18 04:51 RDW 15.9 % (13.2-15.2) H 12/10/18 04:51 Plt Count 172 K/mm3 (140-440) 12/10/18 04:51 Lymph % (Auto) 9.9 % (13.4-35.0) L 12/10/18 04:51 [place] % (Auto) 11.3 % (0.0-7.3) H 12/10/18 04:51 Eos % (Auto) 2.9 % (0.0-4.3) 12/10/18 04:51 Baso % (Auto) 0.5 % (0.0-1.8) 12/10/18 04:51 Lymph # 0.6 K/mm3 (1.2-5.4) L 12/10/18 04:51 [place] # 0.7 K/mm3 (0.0-0.8) 12/10/18 04:51 Eos # 0.2 K/mm3 (0.0-0.4) 12/10/18 04:51 Baso # 0.0 K/mm3 (0.0-0.1) 12/10/18 04:51 Add Manual Diff Complete 12/07/18 16:49 Total Counted 100 12/07/18 16:49 Seg Neutrophils % 75.4 % (40.0-70.0) H 12/10/18 04:51 Seg Neuts % (Manual) 91.0 % (40.0-70.0) H 12/07/18 16:49 0 % 12/07/18 16:49 5.0 % (13.4-35.0) L 12/07/18 16:49 Reactive Lymphs % (Man) 0 % 12/07/18 16:49 4.0 % (0.0-7.3) 12/07/18 16:49 0 % (0.0-4.3) 12/07/18 16:49 0 % (0.0-1.8) 12/07/18 16:49 0 % 12/07/18 16:49 0 % 12/07/18 16:49 0 % 12/07/18 16:49 0 % 12/07/18 16:49 Nucleated RBC % Not Reportable 12/07/18 16:49 Seg Neutrophils # 4.8 K/mm3 (1.8-7.7) 12/10/18 04:51 Seg Neutrophils # Man 9.0 K/mm3 (1.8-7.7) H 12/07/18 16:49 Band Neutrophils # 0.0 K/mm3 12/07/18 16:49 0.5 K/mm3 (1.2-5.4) L 12/07/18 16:49 Abs React Lymphs (Man) 0.0 K/mm3 12/07/18 16:49 0.4 K/mm3 (0.0-0.8) 12/07/18 16:49 0.0 K/mm3 (0.0-0.4) 12/07/18 16:49 0.0 K/mm3 (0.0-0.1) 12/07/18 16:49 0.0 K/mm3 12/07/18 16:49 0.0 K/mm3 12/07/18 16:49 0.0 K/mm3 12/07/18 16:49 Blast Cells # 0.0 K/mm3 12/07/18 16:49 WBC Morphology Not Reportable 12/07/18 16:49 Hypersegmented Neuts Not Reportable 12/07/18 16:49 Hyposegmented Neuts Not Reportable 12/07/18 16:49 Hypogranular Neuts Not Reportable 12/07/18 16:49 Not Reportable 12/07/18 16:49 Not Reportable 12/07/18 16:49 Not Reportable 12/07/18 16:49 Not Reportable 12/07/18 16:49 Not Reportable 12/07/18 16:49 Not Reportable 12/07/18 16:49 Not Reportable 12/07/18 16:49 Not Reportable 12/07/18 16:49 Plt Clumps, EDTA Not Reportable 12/07/18 16:49 Not Reportable 12/07/18 16:49 Not Reportable 12/07/18 16:49 Not Reportable 12/07/18 16:49 Plt Morphology Comment Not Reportable 12/07/18 16:49 RBC Morphology Not Reportable 12/07/18 16:49 Dimorphic RBCs Not Reportable 12/07/18 16:49 Not Reportable 12/07/18 16:49 1+ 12/07/18 16:49 Not Reportable 12/07/18 16:49 Not Reportable 12/07/18 16:49 Not Reportable 12/07/18 16:49 Not Reportable 12/07/18 16:49 Not Reportable 12/07/18 16:49 Not Reportable 12/07/18 16:49 Not Reportable 12/07/18 16:49 Not Reportable 12/07/18 16:49 Not Reportable 12/07/18 16:49 Not Reportable 12/07/18 16:49 Not Reportable 12/07/18 16:49 Not Reportable 12/07/18 16:49 Not Reportable 12/07/18 16:49 Not Reportable 12/07/18 16:49 Not Reportable 12/07/18 16:49 Not Reportable 12/07/18 16:49 Not Reportable 12/07/18 16:49 Acanthocytes (Spur) Not Reportable 12/07/18 16:49 Rouleaux Not Reportable 12/07/18 16:49 Not Reportable 12/07/18 16:49 Not Reportable 12/07/18 16:49 Not Reportable 12/07/18 16:49 Not Reportable 12/07/18 16:49 Hem Pathologist Commnt No 12/07/18 16:49 PT 13.1 Sec. (12.2-14.9) 12/07/18 16:49 INR 1.02 (0.87-1.13) 12/07/18 16:49 APTT 26.6 Sec. (24.2-36.6) 12/07/18 16:49 > 65705 ng/mlDDU (0-234) H 12/07/18 Unknown Sodium 136 mmol/L (137-145) L 12/13/18 05:34 Potassium 4.2 mmol/L (3.6-5.0) 12/13/18 05:34 Chloride 101.9 mmol/L (98-107) 12/13/18 05:34 Carbon Dioxide 25 mmol/L (22-30) 12/13/18 05:34 13 mmol/L 12/13/18 05:34 BUN 9 mg/dL (9-20) 12/13/18 05:34 0.7 mg/dL (0.8-1.5) L 12/13/18 05:34 Estimated GFR > 60 ml/min 12/13/18 05:34 13 % 12/13/18 05:34 Glucose 265 mg/dL (75-100) H 12/13/18 05:34 POC Glucose 253 (70-105) H 12/13/18 07:19 Lactic Acid 1.10 mmol/L (0.7-2.0) 12/08/18 09:15 Calcium 8.6 mg/dL (8.4-10.2) 12/13/18 05:34 Magnesium 1.60 mg/dL (1.7-2.3) L 12/12/18 04:37 0.80 mg/dL (0.1-1.2) 12/08/18 05:03 AST 28 units/L (5-40) 12/08/18 05:03 ALT 16 units/L (7-56) 12/08/18 05:03 56 units/L (35-129) 12/08/18 05:03 30.0 umol/L (25-60) 12/10/18 04:51 < 0.010 ng/mL (0.00-0.029) 12/07/18 16:49 NT-Pro-B Natriuret Pep 357.9 pg/mL (0-900) 12/07/18 Unknown 6.5 g/dL (6.3-8.2) 12/08/18 05:03 3.5 g/dL (3.9-5) L 12/08/18 05:03 1.2 % 12/08/18 05:03 Amylase 52 units/L (27-131) 12/07/18 18:01 TSH 0.650 mlU/mL (0.270-4.200) 12/07/18 20:24 Free T4 1.36 ng/dL (0.76-1.46) 12/07/18 20:24 Yellow (Yellow) 12/07/18 17:36 Clear (Clear) 12/07/18 17:36 7.0 (5.0-7.0) 12/07/18 17:36 Ur Specific [place] 1.018 (1.003-1.030) 12/07/18 17:36 30 mg/dl mg/dL (Negative) 12/07/18 17:36 >=500 mg/dL (Negative) 12/07/18 17:36 20 mg/dL (Negative) 12/07/18 17:36 Sm (Negative) 12/07/18 17:36 Neg (Negative) 12/07/18 17:36 Neg (Negative) 12/07/18 17:36 < 2.0 mg/dL (<2.0) 12/07/18 17:36 Ur Leukocyte Esterase Neg (Negative) 12/07/18 17:36 2.0 /HPF (0.0-6.0) 12/07/18 17:36 4.0 /HPF (0.0-6.0) 12/07/18 17:36 Hyaline Casts 1 /LPF 12/07/18 17:36 Few /HPF 12/07/18 17:36 Presumptive negative 12/07/18 17:36 Presumptive negative 12/07/18 17:36 Ur Barbiturates Screen Presumptive negative 12/07/18 17:36 Ur Phencyclidine Scrn Presumptive negative 12/07/18 17:36 Ur Amphetamines Screen Presumptive negative 12/07/18 17:36 U Benzodiazepines Scrn Presumptive negative 12/07/18 17:36 Presumptive positive 12/07/18 17:36 U Marijuana (THC) Screen Presumptive negative 12/07/18 17:36 Disclamer 12/07/18 17:36 Plasma/Serum Alcohol < 0.01 % (0-0.07) 12/07/18 16:49 Active Medications - Current Medications Current Medications: Generic Name Dose Route Start Last Admin Trade Name Freq PRN Reason Stop Dose Admin Albuterol 2.5 mg 12/07/18 20:06 Proventil IH Q3HRT PRN Shortness Of Breath Dextrose 50 ml 12/07/18 20:21 D50w (25gm) Syringe IV PRN PRN Hypoglycemia Hydralazine HCl 10 mg 12/07/18 20:11 12/12/18 22:14 Apresoline IV 10 mg Q6HR PRN Administration Hypertension Sodium Chloride 1,000 mls @ 100 mls/hr 12/07/18 21:00 12/13/18 01:59 Nacl 0.9% 1000 Ml IV 100 mls/hr DIRECT RACHELL Administration Insulin Human Lispro 0 unit 12/07/18 22:00 12/13/18 08:34 Humalog SUB-Q 4 unit ACHS RACHELL Administration Protocol Lactulose 20 gm 12/08/18 12:26 Cephulac PO Q8H PRN Constipation Lorazepam 4 mg 12/10/18 22:38 Ativan IV Q1H PRN CIWA-Ar 16-25 Lorazepam 2 mg 12/10/18 22:38 12/13/18 03:39 Ativan IV 2 mg Q1H PRN Administration CIWA-Ar 8-15 Losartan Potassium 50 mg 12/11/18 12:00 12/13/18 08:34 Cozaar PO 50 mg QDAY RACHELL Administration Sodium Chloride 10 ml 12/07/18 22:00 12/13/18 08:35 Sodium Chloride Flush Syringe 10 Ml IV 10 ml BID RACHELL Administration Sodium Chloride 10 ml 12/07/18 20:06 12/12/18 15:28 Sodium Chloride Flush Syringe 10 Ml IV 10 ml PRN PRN Administration LINE FLUSH
[2018-12-13] MEDS: APRESOLINE IV PRN (13:21)
[2018-12-14] MEDS: APRESOLINE IV PRN (07:53)
[2018-12-14] MEDS: HumaLOG SUB-Q SCH ×2 (07:53→11:33)
[2018-12-14] MEDS: COZAAR PO SCH (09:48)
[2018-12-14] MEDS: SODIUM CHLORIDE FLUSH SYRINGE 10 ML IV SCH (09:49)
[2018-12-14 13:42] VITALS: BP 147/95
--- NOTE | 2018-12-14 15:10 | Discharge Summary ---
Providers - Providers Date of Admission: 12/07/18 20:06 Date of discharge: 12/14/18 Attending physician: NI DELUCA 12/10/18 08:40 Physical Therapy Evaluation and Treat [CONS] Routine Comment: Reason For Exam: deconditioning [facility] Hospitalization Condition: Fair Disposition: DC/[place]-[address] [facility] Core Measure Documentation - Palliative Care Palliative Care/ Comfort Measures: Not Applicable - Core Measures Any of the following diagnoses?: none Exam - Constitutional Vitals: Temp Pulse Resp BP Pulse Ox 98.6 F 102 H 18 147/95 99 12/14/18 09:01 12/14/18 10:00 12/14/18 07:48 12/14/18 12:59 12/14/18 10:00 Plan Activity: advance as tolerated Diet: low fat, low cholesterol, low salt, diabetic Durable Medical Equipment Needed Upon Discharge: Walker-Rolling Additional Instructions: 1.Follow up with PCP in 1 week. Follow up with: ANYA LEAVITT MD [Primary Care Provider] - 3-5 Days Prescriptions: metFORMIN [Glucophage] 500 mg PO BID #60 tablet Hydralazine HCl 50 mg PO BID #60 tablet Metoprolol [Lopressor TAB] 25 mg PO BID #60 tablet Multivitamin Tab [Multiple Vitamin TAB (Theragran)] 1 each PO QDAY #30 tablet
== END 2018-12-14 16:16 | disposition home health service (06) | DRG 441 ==
LOC: ED 16:02 → EDBD 20:06 → IMCU 20:06 → 2B-ACE 12-09 16:28
PROVIDERS: ADMIT Internal Medicine; ATTEND Internal Medicine
DX: K72.90 Hepatic failure, unspecified without coma (principal); G93.41 Metabolic encephalopathy; E87.2 Acidosis; E87.1 Hypo-osmolality and hyponatremia; I10 Essential (primary) hypertension; I16.0 Hypertensive urgency; E11.9 Type 2 diabetes mellitus without complications; E86.0 Dehydration; F14.10 Cocaine abuse, uncomplicated; F10.10 Alcohol abuse, uncomplicated; Y90.9 Presence of alcohol in blood, level not specified; Z71.41 Alcohol abuse counseling and surveillance of alcoholic; Z71.51 Drug abuse counseling and surveillance of drug abuser; Z79.84 Long term (current) use of oral hypoglycemic drugs
CPT/HCPCS: 36415; 70450; 80048; 80053; 80307; 80320; 81001; 82140; 82150; 82962; 83735; 83880; 84439; 84443; 84484; 85007; 85025; 85379; 85610; 85730; 87040; 93005; 93010; 95819; 96361; 96365; 96366; 96372; 96375; 96376; G0378; G0480; J0360; J1200; J1630; J1815; J2060; J3411; J3475; J7030